=== PATIENT | female | born 1955 | race Caucasian/White ===

== ENCOUNTER 2022-06-28 18:46 | Emergency (ER) | payer OTHER, SELFPAY ==
[2022-06-28 18:58] VITALS: BP 162/78; PULSE 86; RESP 22; TEMP 37.1; O2SAT 100; BMI 29.5
--- NOTE | 2022-06-28 19:16 | CRLHL7_ITS ---
For Patients: As a result of the Century Cures Act, medical imaging exams and procedure reports are released immediately into your electronic medical record. You may view this report before your referring provider. If you have questions, please contact your health care provider. INDICATION: abdominal pain TECHNIQUE: CT abdomen and pelvis acquired with 84 cc Isovue 370 IV contrast. COMPARISON: None. FINDINGS: Lower chest: Scattered areas of mosaic attenuation within the lung bases. Coronary artery calcifications. ABDOMEN: Liver: Normal enhancement. No focal suspicious hepatic lesions. Gallbladder and biliary: Normal gallbladder without radiopaque stone. Normal caliber bile ducts. Spleen: Normal size and enhancement. Pancreas: Normal enhancement without peripancreatic inflammatory changes or ductal dilatation. Adrenal glands: Normal adrenal glands. Kidneys and ureters: Normal enhancement. No radio-opaque calculi. No hydroureteronephrosis. Subcentimeter hypodensities are too small to characterize however statistically represent cysts. GI tract: Tiny hiatal hernia. Normal caliber small and large bowel loops. Appendix is not definitively visualized. Colonic diverticulosis without diverticulitis. Vascular structures: Patent abdominal aorta with atherosclerotic vascular calcifications. Lymph nodes: No lymphadenopathy in the abdomen or pelvis by size criteria. Peritoneum: No free air, free fluid, or focal drainable fluid collection. PELVIS: Genitourinary system: Mild circumferential wall thickening of the urinary bladder. 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 SKELETAL STRUCTURES AND SOFT TISSUES: Heterotopic ossification abutting the ischial tuberosities likely reflecting remote hamstrings injuries. Posterior spinal process fusion. Multilevel lumbar spondylosis. IMPRESSION: 1. No definite acute abdominal or pelvic process in no obstruction. No hydroureteronephrosis. Colonic diverticulosis without diverticulitis. 2. Mild circumferential wall thickening of the urinary bladder. Recommend correlation with urinalysis to assess for underlying cystitis. Please note that all CT scans at this facility use dose modulation, iterative reconstruction, and/or weight-based dosing when appropriate to reduce radiation dose to as low as reasonably achievable. Dictated by Scott Borges MD @ 06/28/2022 9:00:50 PM (Electronically Signed)
--- NOTE | 2022-06-28 19:18 | ED_ITS ---
HPI - Abdominal Pain General Chief Complaint: Abdominal Pain Stated Complaint: Abdominal pain Time Seen by Provider: 06/28/22 18:47 History of Present Illness HPI narrative: This 66-year-old female comes in reporting abdominal pain that began yesterday. She states the pain is constant and is worse in her upper epigastric region but also occurs throughout her whole abdomen. She has had some nausea. She does not report any diarrhea. In fact she has some recent constipation. She has a remote history of coronary artery disease and did have coronary artery bypass grafting more than 20 years ago. She does not report any fevers. She does not indicate any chest pain. Related Data Previous Rx's Medication Instructions Recorded pantoprazole 20 mg tablet,delayed 20 mg PO DAILY #20 tabs 06/28/22 release (Protonix) Allergies Allergy/AdvReac Type Severity Reaction Status Date / Time Penicillins Allergy Verified 06/28/22 18:57 Review of Systems Status of ROS Reports: 10 or more systems reviewed and unremarkable except as noted in History and below Narrative Constitutional: No fevers, no weight gain or loss. Eyes: No discharge. No vision changes. HENT: No congestion, no sore throat, no ear pain. Cardiovascular: No chest pain, no palpitations. Respiratory: No shortness of breath, no wheezes, no cough. Gastrointestinal: Abdominal pain which she rates at 8/10 in severity with associated nausea. Genitourinary: No dysuria, no hematuria. Musculoskeletal: Normal range of motion. Skin: No rashes, no pruritis. Neurological: No dizziness, weakness, sensory change, speech change. Endo/Heme/Allergies: No bruising or bleeding. No polydipsia. Pysch: no suicidality, no anxiety, no insomnia. All other systems reviewed and are negative. [facility] Social History Smoking Status: Current every day smoker What tobacco products do you use: cigarettes Smoking packs per day: 0.75 Smoking cigarettes per day: 15.0 Years smoked: 30 Smoking pack-years: 22.50 Do you use any of these nicotine containing products: None Second hand tobacco smoke exposure: No How often do you have a drink containing alcohol: monthly or less How many standard drinks containing alcohol do you have on a typical day: 1 or 2 How often do you have six or more drinks on one occasion: Never AUDIT-C Alcohol total score: 1 Non-prescribed substance use: denies use service: No Exam Narrative: Exam Narrative: Constitutional: Well-developed, well-nourished, no acute distress. HEENT: Normocephalic, atraumatic. Neck: Normal range of motion. Nontender. Supple. Heart: Regular. No murmurs. Normal rate. Intact distal pulses. Lungs: Clear to auscultation. No chest discomfort. No wheezes, rhonchi, or rales. Abdomen: Normal bowel sounds. Diffuse tenderness throughout the abdomen, upper epigastric area is more tender by her report. No rebound tenderness. Genitalia: Deferred. Back: No midline tenderness. Normal range of motion. Extremities: Normal range of motion. No injury. Skin: Intact. No rash. Warm. No erythema or pallor. Neurologic: No altered sensation. No weakness. Alert and oriented. Psychiatric: No suicidality. No anxiety or depression. No insomnia. Nursing notes and vitals signs are reviewed. Const: Vital Signs, click to edit/add: Vital Signs - 24 hr 06/28/22 18:58 Temperature 98.7 F Pulse Rate [Pulse Oximeter] 86 Respiratory Rate 22 Blood Pressure [Ri ght Upper Arm] 162/78 H Pulse Oximetry 100 Oxygen Delivery Me thod Room Air Course Vital Signs Vital signs: Initial Vital Signs Temperature 98.7 F 06/28/22 18:58 Temperature Source Temporal Artery Scan 06/28/22 18:58 Pulse Rate 86 06/28/22 18:58 Pulse Rhythm Regular 06/28/22 18:58 Respiratory Rate 22 06/28/22 18:58 Blood Pressure 162/78 H 06/28/22 18:58 Blood Pressure Mean 106 H 06/28/22 18:58 Blood Pressure Position Supine 06/28/22 18:58 Pulse Oximetry 100 06/28/22 18:58 Oxygen Delivery Method Room Air 06/28/22 18:58 Vital Signs Temperature 98.7 F 06/28/22 18:58 Pulse Rate 86 06/28/22 18:58 Respiratory Rate 22 06/28/22 18:58 Blood Pressure 162/78 H 06/28/22 18:58 Pulse Oximetry 100 06/28/22 18:58 Oxygen Delivery Method Room Air 06/28/22 18:58 Temperature 98.7 F 06/28/22 18:58 Pulse Rate 86 06/28/22 18:58 Respiratory Rate 22 06/28/22 18:58 Blood Pressure 162/78 H 06/28/22 18:58 Pulse Oximetry 100 06/28/22 18:58 Oxygen Delivery Method Room Air 06/28/22 18:58 MDM - Abdominal Pain MDM Narrative Medical decision making narrative: This patient comes in with upper epigastric abdominal pain. She was concerned that this might be related to her heart however she did not have any chest pain. She does have a remote history of coronary artery disease more than 20 years ago. EKG shows normal findings and her troponin level returns at 0. An IV was established where she did receive nausea and pain medicine. This brought relief to her symptoms. Lab results returned with normal findings as does her CT scan. Urinalysis also shows no sign of infection. Most likely this patient had a gastritis possibly due to a virus. Her nasal swab was negative for COVID, influenza, and RSV. She is okay to be discharged home. She did received prescription for Protonix, Zofran, and some tablets of Toradol. Lab Data Labs: Lab Results 06/28/22 06/28/22 06/28/22 Range/Units 19:26 19:30 19:50 WBC 7.64 (4.50-11.00) K/uL RBC 4.14 (4.00-5.20) m/uL Hgb 13.4 (12.0-16.0) gm/dL Hct 40.1 (33.0-51.0) % MCV 97 (80-100) fL MCH 32 (26-34) pg MCHC 33 (32-36) gm/dL RDW Coeff of Daniel 14.2 (11.5-15.5) % Plt Count 168 (140-440) K/uL Neut % (Auto) 70.3 (42.0-72.0) % Lymph % (Auto) 21.3 (20-44) % [place] % (Auto) 7.2 (0.0-11.0) % Eos % (Auto) 0.8 (0.0-7.0) % Baso % (Auto) 0.3 (0.0-3.0) % Neut # (Auto) 5.37 (1.7-7.0) K/uL Lymph # (Auto) 1.63 (0.90-2.90) K/uL [place] # (Auto) 0.60 (0.00-0.90) K/UL Eos # (Auto) 0.06 (0.00-0.50) K/uL Baso # (Auto) 0.02 (0.00-0.30) K/uL Sodium 130 L (135-149) mmol/L Potassium 3.6 (3.6-5.1) mmol/L Chloride 100 (96-114) mmol/L Carbon Dioxide 21 (20-32) mmol/L BUN 7 (7-30) mg/dL Creatinine 0.7 (0.5-1.5) mg/dL Estimated Creat Clear 47.14 Estimated GFR 95 ml/min Glucose 109 (60-115) mg/dL Calcium 9.0 (8.4-10.6) mg/dL Total Bilirubin 0.6 (0.1-1.5) mg/dL Direct Bilirubin 0.2 (0.0-0.5) mg/dL AST 29 (12-35) U/L ALT 21 (4-35) U/L Alkaline Phosphatase 76 (40-150) U/L Total Protein 7.1 (6.0-8.3) g/dL Albumin 4.2 (3.3-5.0) g/dL Lipase 141 (23-300) U/L Urine Color Yellow (Yellow) Urine Appearance Clear (Clear) Urine pH 7.0 (5.0-8.5) Ur Specific [place] 1.010 (1.000-1.030) Urine Protein Negative (Negative) Urine Glucose (UA) Negative (Negative) Urine Ketones 1+ A (Negative) Urine Blood Trace-intact A (Negative) Urine Nitrite Negative (Negative) Urine Bilirubin Negative (Negative) Urine Urobilinogen 0.2 (0.2-1.0) Ur Leukocyte Esterase Negative (Negative) SARS-CoV-2 (PCR) Negative SARS-CoV-2 (Negative) Influenza Type A (PCR) Negative PCR FLU A (Negative) Influenza Type B (PCR) Negative PCR FLU B (Negative) RSV (PCR) Negative PCR RSV (Negative) POC Troponin I 0.00 L (0.01-0.04) ng/ml Imaging Data CT scan - abdomen: Radiologist's impression: 1. No definite acute abdominal or pelvic process in no obstruction. No hydroureteronephrosis. Colonic diverticulosis without diverticulitis. 2. Mild circumferential wall thickening of the urinary bladder. Recommend correlation with urinalysis to assess for underlying cystitis. ECG Data Attestation: I personally reviewed and interpreted this ECG as follows: Interpretation: Normal sinus rhythm. Rate is 88 beats per minute. There are no ST or T-wave abnormalities. Discharge Plan Discharge Clinical Impression: Gastritis Patient Disposition: Home, Self-Care Condition: Improved Additional Instructions: Take medication as needed and indicated. Follow up with MD or return if worsening. Prescriptions: New pantoprazole [Protonix] 20 mg tablet,delayed release (DR/EC) 20 mg PO DAILY Qty: 20 2RF Follow Up/Referrals: Provider,Not a Local [Primary Care Provider] - Stand Alone Forms: [employer] Info Instructions
--- OUTSIDE RECORDS SUMMARY | 2022-06-28 19:18 | XMS_ITS | Continuity of Care Document ---
Author Name Unknown Organization [facility] Address [address] [address] [place] [address] Phone Care Team Providers Care Caddy/Caddie Supervisor Name Role Phone Nata CANTU, Juventino Unavailable Unavailable Allergies, Adverse Reactions, Alerts Substance Reaction Status Criticality Penicillins Rash Active No Information Medications Medication Instructions Dosage Effective Dates (start - stop) Status Comments oxaprozin 600 mg tablet take 2 tablet by oral route every day 1200 MG - Active lisinopril 20 mg tablet take 1 tablet by oral route every day 20 MG - Active levothyroxine 75 mcg tablet take 1 tablet by oral route every day 75 MCG - Active methotrexate sodium 2.5 mg tablet take 6 Tablet by ORAL route every week 15 MG - Active metoprolol succinate ER 25 mg tablet,extended release 24 hr take 12.5 Milligram by ORAL route every evening 312.5 MG - Active atorvastatin 40 mg tablet take 1 tablet by oral route every day 40 MG - Active Vitamin D3 5,000 unit tablet take 1 by Oral route every day 1 - Active folic acid 400 mcg tablet take 1 tablet by oral route every day 0.4 MG - Active IRON (unknown strength) take 1 by Oral route every day Not Available - Active Calcium 600 + D(3) 600 mg calcium-200 unit capsule take 1 Tablet by Oral route 2 times every day 1 Tablet - Active aspirin 325 mg tablet take 1 tablet by oral route every day 325 MG - Active MiralaxBisacodylMagCit Colon Prep Use as directed Oct-22-2015 - No Longer Active Procedures Procedure Date Colonoscopy Flex; W/remov Les- 16 Level Iv-surg Path Gross/micro 16 Advance Directives Directive Yes / No Effective Date File Name No Information Encounters Encounter Description Practice Location Reason(s) For Visit Diagnoses Date Provider Providers Copied on Encounter [facility], [address] [address], [place], [place], [id number], [place] tel:[phone] [facility] Colon polypDiverticulo sis of large intestine without hemorrhageHemorr hoids, unspecified hemorrhoid typeHemorrhoids, unspecified hemorrhoid typeEncounter for screening for malignant neoplasm of colonUnspecified hemorrhoidsDvrtc los of lg int w/o perforation or abscess w/o bleedingPolyp of colon Jun- 6 Nata Jauregui. [address] [place] [address], [id number] , [place]. tel:[phone] Referring Provider: Sebas Xiao, [address] [place], [address]. tel:[phone] [facility], [address] [address], [place], [place], [id number], [place] tel:[phone] [facility] No Information 5 Edson Ryan. [address] [place] [address], [id number] , . tel:[phone] Referring Provider: Sebas Xiao, [address] [place], [address]. tel:[phone] Family History Family Member Type Diagnosis Age At Onset Daughter Problem (finding) Thyroid disorder Daughter Problem (finding) asthma Mother Problem (finding) Thyroid disorder Mother Problem (finding) gallbladder disease Father Problem (finding) alcoholism Payers Payer name Insurance type Covered green party ID Authoriza tion(s) Blue Cross [place] Blue BL [id number] Social History Type Description Quantity Date Captured Comments Alcohol Use Details Unknown Caffeine Use Details Unknown Tobacco Use Status No Information Smoking Status Never smoker Sex Female Vital Signs Date / Time: Height Weight BMI Pulse Rate Blood Pressure Temperature Respiratory Rate Body Surface Area Head Circumference Head Circ. Percentile Wt./Cb. Percentile BMI percentile Pulse Ox Inhaled Ox 64.00 in 79.820 kg (176.00 lbs) 30.2 0 kg/m eter (2) 75 /min 106/68 mm[Hg] 0.00 F 16 /min 97 % Chief Complaint And Reason For Visit No Information Reason For Referral Reason For Referral No Information Plan Of Treatment Date Type Action Status No Information History Of Present Illness Encounter Date Complaint History Of Prese nt Illness No Information Functional Status Date Functional Assessmen t No Information Instructions Date Instruction Additional Infor mation Hemorrhoids Related to Hemor rhoids, unspecified hemorrhoid type Diverticulosis/Diverticulitis Re lated to Hemorrhoids, unspecified hemorrhoid type Colon Polyps Related to Hemor rhoids, unspecified hemorrhoid type Assessments Type Assessment Date assessment Colon polyp assessment Diverticulosis of large intestin e without hemorrhage assessment Hemorrhoids, unspecified hemorrh oid type Patient Care Teams Name Effective Dates (start - stop) Status Members No Information
--- OUTSIDE RECORDS SUMMARY | 2022-06-28 19:18 | XMS_ITS | Continuity of Care Document ---
Author Name Unknown Organization [facility] Address [address] [address] [place] [address] Phone Care Team Providers Care Enrobing Machine Feeder Name Role Phone Nata CANTU, Juventino Unavailable [...] Diagnoses Date Provider Providers Copied on Encounter [facility], [address] [address], [place], [place], [id number], [place] tel:[phone] [facility] Colon polypDiverticulo sis of large intestine without hemorrhageHemorr hoids, unspecified hemorrhoid typeHemorrhoids, unspecified hemorrhoid typeEncounter for screening for malignant neoplasm of colonUnspecified hemorrhoidsDvrtc los of lg int w/o perforation or abscess w/o bleedingPolyp of colon Jun- 6 Nata Jauregui. [address] [place] [address], [id number] , [place]. tel:[phone] Referring Provider: Sebas Xiao, [address] [place], [address]. tel:[phone] [facility], [address] [address], [place], [place], [id number], [place] tel:[phone] [facility] No Information 5 Edson Ryan. [address] [place] [address], [id number] , . tel:[phone] Referring Provider: Sebas Xiao, [address] [place], [address]. tel:[phone] Family History Family Member Type Diagnosis Age At Onset Daughter Problem (finding) Thyroid disorder Daughter Problem (finding) asthma Mother Problem (finding) Thyroid disorder Mother Problem (finding) gallbladder disease Father Problem (finding) alcoholism Payers Payer name Insurance type Covered green party ID Authoriza tion(s) Blue Cross [place] Blue BL [id number] Social History Type Description Quantity Date Captured [...]
[2022-06-28 19:41] LABS: Appearance Urine Clear (Clear); Bilirubin Urine Negative (Negative); Blood Urine Trace-intact (Negative); Color Urine Yellow (Yellow); Glucose Urine Negative (Negative); Ketones Urine 1+ (Negative); Leukocyte Esterase Urine Negative (Negative); Nitrite Urine Negative (Negative); Protein Urine Negative (Negative); Urobilinogen Urine 0.2 (0.2-1.0)
[2022-06-28] MEDS: ONDANSETRON 2 MG/ML inj 4 MG IVP (20:00)
[2022-06-28] MEDS: HYDROmorphone 0.5 mg/0.5 ml inj IVP (20:00)
[2022-06-28 20:03] LABS: Basophils Absolute Auto 0.02 K/uL (0.00-0.30); Basophils Percent Auto 0.3 % (0.0-3.0); Eosinophils Absolute Auto 0.06 K/uL (0.00-0.50); Eosinophils Percent Auto 0.8 % (0.0-7.0); Hematocrit 40.1 % (33.0-51.0); Hemoglobin* 13.4 gm/dL (12.0-16.0); Immature Granulocytes Abs Auto 0.01 K/uL (0.00-0.30); Immature Granulocytes Pct Auto 0.1 %; Lymphocytes Absolute Auto 1.63 K/uL (0.90-2.90); Lymphocytes Percent Auto 21.3 % (20-44); Mean Corpuscular HGB Conc 33 gm/dL (32-36); Mean Corpuscular Hemoglobin 32 pg (26-34); Mean Corpuscular Volume 97 fL (80-100); Monocytes Percent Auto 7.2 % (0.0-11.0); Neutrophils Absolute Auto 5.37 K/uL (1.7-7.0); Neutrophils Percent Auto 70.3 % (42.0-72.0); Platelet Count* 168 K/uL (140-440); RDW Coefficient of Variation % 14.2 % (11.5-15.5); Red Blood Count 4.14 m/uL (4.00-5.20); White Blood Count* 7.64 K/uL (4.50-11.00)
[2022-06-28 20:16] LABS: Slide Review Reflex No
[2022-06-28 20:19] LABS: Albumin* 4.2 g/dL (3.3-5.0); Chloride* 100 mmol/L (96-114); Sodium* 130 mmol/L (135-149)
[2022-06-28 20:20] LABS: Potassium* 3.6 mmol/L (3.6-5.1)
[2022-06-28 20:22] LABS: Alkaline Phosphatase* 76 U/L (40-150); Aspartate Amino Transferase* 29 U/L (12-35); Bilirubin Direct* 0.2 mg/dL (0.0-0.5); Bilirubin Total* 0.6 mg/dL (0.1-1.5); Blood Urea Nitrogen* 7 mg/dL (7-30); Carbon Dioxide* 21 mmol/L (20-32); Creatinine* 0.7 mg/dL (0.5-1.5); Est. Creatinine Clearance* 47.14; Estimated Glomerular Filt Rate 95 ml/min; Glucose* 109 mg/dL (60-115); Lipase* 141 U/L (23-300); Total Protein* 7.1 g/dL (6.0-8.3)
[2022-06-28 20:23] LABS: Alanine Aminotransferase* 21 U/L (4-35)
[2022-06-28 20:49] LABS: PCR FLU A Negative PCR FLU A (Negative); PCR FLU B Negative PCR FLU B (Negative); PCR RSV Negative PCR RSV (Negative)
[2022-06-28 21:00] VITALS: BP 140/70; PULSE 76; RESP 18; O2SAT 97
[2022-06-28 21:07] LABS: SARS PCR* Negative SARS-CoV-2 (Negative)
[2022-06-29 02:53] LABS: Squamous Epithelial Cell Urine Few (None-Few); WBC Urine 0-2 (0-5)
== END 2022-06-28 21:39 | disposition home or self-care (01) ==
PROVIDERS: Emergency Provider Emergency Medicine Emergency Medical Services
DX: K29.70 Gastritis, unspecified, without bleeding (principal)
CPT/HCPCS: 36415; 74177; 80048; 80076; 81001; 83690; 84484; 85025; 87631; 93005; 96374; 96375; 99284; 99285; J1170; J2405; Q9967

== ENCOUNTER 2022-06-29 20:56 | Inpatient (IN) | payer OTHER, SELFPAY ==
[2022-06-29 21:00] VITALS: BP 167/82; PULSE 77; RESP 18; TEMP 36.6; O2SAT 98; BMI 29.5
[2022-06-29] MEDS: 0.9 % SODIUM CHLORIDE 1000 ml 1,000 ML IV (21:27)
[2022-06-29 21:31] LABS: Basophils Absolute Auto 0.02 K/uL (0.00-0.30); Basophils Percent Auto 0.2 % (0.0-3.0); Eosinophils Absolute Auto 0.06 K/uL (0.00-0.50); Eosinophils Percent Auto 0.6 % (0.0-7.0); Hematocrit 33.7 % (33.0-51.0); Immature Granulocytes Abs Auto 0.01 K/uL (0.00-0.30); Immature Granulocytes Pct Auto 0.1 %; Lymphocytes Percent Auto 18.8 % (20-44); Mean Corpuscular HGB Conc 36 gm/dL (32-36); Mean Corpuscular Hemoglobin 33 pg (26-34); Mean Corpuscular Volume 94 fL (80-100); Monocytes Percent Auto 8.7 % (0.0-11.0); Neutrophils Absolute Auto 6.99 K/uL (1.7-7.0); Neutrophils Percent Auto 71.6 % (42.0-72.0); Platelet Count* 151 K/uL (140-440); RDW Coefficient of Variation % 13.2 % (11.5-15.5); White Blood Count* 9.76 K/uL (4.50-11.00)
[2022-06-29 21:32] LABS: Slide Review Reflex No
--- OUTSIDE RECORDS SUMMARY | 2022-06-29 21:34 | XMS_ITS | Continuity of Care Document ---
Author Name Unknown Organization [facility] Address [address] [address] [place] [address] Phone Care Team Providers Care Corporate Accountant Name Role Phone Nata CANTU, Juventino Unavailable [...] Diagnoses Date Provider Providers Copied on Encounter [facility], [address] [address], [place], [place], [id number], [place] tel:[phone] [facility] Colon polypDiverticulo sis of large intestine without hemorrhageHemorr hoids, unspecified hemorrhoid typeHemorrhoids, unspecified hemorrhoid typeEncounter for screening for malignant neoplasm of colonUnspecified hemorrhoidsDvrtc los of lg int w/o perforation or abscess w/o bleedingPolyp of colon Jun- 6 Nata Jauregui. [address] [place] [address], [id number] , [place]. tel:[phone] Referring Provider: Sebas Xiao, [address] [place], [address]. tel:[phone] [facility], [address] [address], [place], [place], [id number], [place] tel:[phone] [facility] No Information 5 Edson Ryan. [address] [place] [address], [id number] , . tel:[phone] Referring Provider: Sebas Xiao, [address] [place], [address]. tel:[phone] Family History Family Member Type Diagnosis Age At Onset Daughter Problem (finding) Thyroid disorder Daughter Problem (finding) asthma Mother Problem (finding) Thyroid disorder Mother Problem (finding) gallbladder disease Father Problem (finding) alcoholism Payers Payer name Insurance type Covered green party ID Authoriza tion(s) Blue Cross [place] Blue BL [id number] Social History Type Description Quantity Date Captured [...]
[2022-06-29] MEDS: LORazepam 2 MG/ML inj 0.5 MG IVP (21:43)
[2022-06-29] MEDS: diphenhydrAMINE 50 MG/ML inj 12.5 MG IVP (21:43)
[2022-06-29] MEDS: METOCLOPRAMIDE HCL 10 MG in 0.9 % SODIUM CHLORIDE 100 ml 100 ML 306 MG IVPB (21:44)
[2022-06-29] MEDS: GI COCKTAIL (VISC LIDO/ANTACID) 30 ML PO (21:44)
[2022-06-29 21:46] LABS: Chloride* 89 mmol/L (96-114)
[2022-06-29 21:47] LABS: Albumin* 3.7 g/dL (3.3-5.0)
[2022-06-29 21:48] LABS: Creatinine* 0.8 mg/dL (0.5-1.5); Est. Creatinine Clearance* 47.14; Estimated Glomerular Filt Rate 81 ml/min; Potassium* 3.7 mmol/L (3.6-5.1)
[2022-06-29 21:49] LABS: Blood Urea Nitrogen* 9 mg/dL (7-30); Calcium* 8.4 mg/dL (8.4-10.6); Carbon Dioxide* 20 mmol/L (20-32); Glucose* 102 mg/dL (60-115)
[2022-06-29 21:50] LABS: Alanine Aminotransferase* 19 U/L (4-35); Alkaline Phosphatase* 60 U/L (40-150); Aspartate Amino Transferase* 31 U/L (12-35); Bilirubin Direct* 0.2 mg/dL (0.0-0.5); Bilirubin Total* 0.7 mg/dL (0.1-1.5); Lipase* 136 U/L (23-300); Total Protein* 6.2 g/dL (6.0-8.3)
[2022-06-29 21:53] LABS: C Reactive Protein* 0.5 mg/dL (0.5-1.0)
[2022-06-29 21:57] LABS: Sodium* 115 mmol/L (135-149)
[2022-06-29 22:05] VITALS: BP 133/61; RESP 18; O2SAT 99
--- NOTE | 2022-06-29 22:10 | ED_ITS ---
HPI - Nausea/Vomiting/Diarrhea General Chief complaint: Nausea/Vomiting Stated complaint: Vomiting Meds not Working Time Seen by Provider: 06/29/22 21:09 History of Present Illness HPI Narrative: 66-year-old woman returning to the emergency department with complaint primarily of nausea and vomiting. Was seen yesterday with similar along with abdominal pain generalized in the emergency department. Treated with hydromorphone and PPI and IV fluids and antiemetic. Was feeling better discharged home with suspected diagnosis of gastritis. Was to continue with PPI and Zofran. Had not picked up PPI yet but took 's Pepcid and Zofran. Yesterday evening then began to vomit intensely again and continued through the day. She remains constipated saying that she has just making little pellets. She has not had any hematochezia or hematemesis. Does have some burning discomfort in her epigastrium but primarily complaint is nausea. She does not typically have heartburn she says. Anything she tries to ingest seems to come back up. Denies a history of achalasia type symptoms. Abdominal CT scan done yesterday suggested some bladder wall thickening with concern of possible cystitis the urinalysis was without evidence of infection. Diverticulosis without diverticulitis. Related Data Home Medications Medication Instructions Recorded Confirmed aspirin 325 mg tablet 325 mg PO DAILY 06/29/22 06/29/22 atorvastatin 40 mg tablet 40 mg PO DAILY 06/29/22 06/29/22 folic acid 1 mg tablet 1 mg PO DAILY 06/29/22 06/29/22 hydroxychloroquine 200 mg tablet 200 mg PO DAILY 06/29/22 06/29/22 ibuprofen 200 mg capsule 400 mg PO DAILY PRN 06/29/22 06/29/22 levothyroxine 100 mcg tablet 100 mcg PO DAILY 06/29/22 06/29/22 lisinopril 20 mg tablet 20 mg PO DAILY 06/29/22 06/29/22 methotrexate sodium 2.5 mg tablet 20 mg PO @06/29/22 06/30/22 metoprolol succinate 25 mg 12.5 mg PO DAILY 06/29/22 06/29/22 tablet,extended release 24 hr pregabalin 75 mg capsule 75 mg PO BID 06/29/22 06/30/22 calcium carbonate 600 mg calcium 1,200 mg PO DAILY 06/30/22 06/30/22 (1,500 mg) tablet (Calcium) cholecalciferol (vitamin D3) .ROUTE 06/30/22 Previous Rx's Medication Instructions Recorded pantoprazole 20 mg tablet,delayed 20 mg PO DAILY #20 tabs 06/28/22 release (Protonix) Allergies Allergy/AdvReac Type Severity Reaction Status Date / Time Penicillins Allergy Verified 06/28/22 18:57 Review of Systems Status of ROS: Reports: 6 or more systems reviewed and unremarkable except as noted in History and below [facility] Medical History (Updated 07/01/22 @ 09:35 by Rosio Dawkins MD) Chronic low back pain ?M54.50 - Low back pain, unspecified (ICD-10) ?G89.29 - Other chronic pain (ICD-10) Coronary artery disease ?I25.10 - Atherosclerotic heart disease of [place] coronary artery without angina pectoris (ICD-10) Hyperlipidemia ?E78.5 - Hyperlipidemia, unspecified (ICD-10) Hypertension ?I10 - Essential (primary) hypertension (ICD-10) Hypothyroidism ?E03.9 - Hypothyroidism, unspecified (ICD-10) Rheumatoid arthritis ?M06.9 - Rheumatoid arthritis, unspecified (ICD-10) Surgical History History of coronary artery bypass graft ?Z95.1 - Presence of aortocoronary bypass graft (ICD-10) Family History (Updated 06/29/22 @ 23:41 by Gaetano Hodge MD) Mother Coronary artery disease Stroke High cholesterol High blood pressure Brother Coronary artery disease High cholesterol High blood pressure Father Alcohol dependence Social History (Updated 06/29/22 @ 23:42 by Gaetano Hodge MD) Narrative: She lives in [facility] with her . They have 1 adult daughter. Her , Royer, is healthcare power of defense attorney. Code status is full. She smokes 3/4 pack of cigarettes per day. She rarely drinks alcohol Highest level of school completed/degree received: some college, no degree Smoking Status: Current every day smoker What tobacco products do you use: cigarettes Smoking packs per day: 0.75 Smoking cigarettes per day: 15.0 Years smoked: 30 Smoking pack-years: 22.50 Do you use any of these nicotine containing products: None Second hand tobacco smoke exposure: No How often do you have a drink containing alcohol: monthly or less How many standard drinks containing alcohol do you have on a typical day: 1 or 2 How often do you have six or more drinks on one occasion: Never AUDIT-C Alcohol total score: 1 Non-prescribed substance use: denies use Caffeine: Yes (Coffee QD) service: No Exam Narrative: Exam Narrative: Pleasant. Seems generally uncomfortable. Breathing easily. Brow furrowed in apparent discomfort. Has emesis basin they brought with that it has just emptied. Abdomen is soft with present but diminished bowel sounds. She is mildly tender to palpation in the epigastrium. Heart with regular rate and rhythm. Lungs appear to be clear. Cranial nerves 2-12 intact. She is well- perfused peripherally. Trace lower extremity nonpitting dependent edema. Const: Vital Signs, click to edit/add: Vital Signs - 24 hr 06/29/22 21:00 06/29/22 22:05 06/29/22 22:39 Temperature 98 F Pulse Rate [Pulse Oximeter] 77 79 Respiratory Rate 18 18 20 Blood Pressure [Ri ght Upper Arm] 167/82 H 133/61 145/67 H Pulse Oximetry 98 99 95 Oxygen Delivery Me thod Room Air Room Air Room Air Documenting provider has reviewed patient's vital signs: yes Course Course Hospital Course: PCP - Please check BMP at visit on July 09. Also, consider further w/u or urology referral for circumferencial bladder wall thickening seen on CT with ongoing suprapubic tenderness and microscopic hematuria. This is a 66-year-old female who had sudden onset of epigastric and suprapubic abdominal pain followed by frequent emesis. These symptoms lasted for about 4 days. She had been seen in the ER initially and then again the next day at which time she was admitted for hyponatremia. Her sodium had dropped from 130- 115 overnight. This was likely secondary to dehydration. It corrected with hydration and her sodium is 134 today on discharge. Epigastric abdominal pain has resolved. Suprapubic abdominal pain has improved, but is not completely gone. Circumferential bladder wall thickening was seen on CT and she did have microscopic hematuria on the urinalysis on the 1st presentation to the emergency department. Emesis has resolved and she is tolerating a general diet. And I spoke about tobacco cessation today. She stated that she was not completely ready yet but would talk with her about it, note that her is a nonsmoker, and would talk with her primary care provider about it. She is disch arged home today in improved and stable condition. Vital Signs Vital signs: Initial Vital Signs Temperature 98 F 06/29/22 21:00 Temperature Source Temporal Artery Scan 06/29/22 21:00 Pulse Rate 77 06/29/22 21:00 Respiratory Rate 18 06/29/22 21:00 Blood Pressure 167/82 H 06/29/22 21:00 Blood Pressure Mean 110 H 06/29/22 21:00 Pulse Oximetry 98 06/29/22 21:00 Oxygen Delivery Method Room Air 06/29/22 21:00 Vital Signs Temperature 98 F 06/29/22 21:00 Pulse Rate 77 06/29/22 21:00 Respiratory Rate 18 06/29/22 21:00 Blood Pressure 167/82 H 06/29/22 21:00 Pulse Oximetry 98 06/29/22 21:00 Oxygen Delivery Method Room Air 06/29/22 21:00 Temperature 97.7 F 07/01/22 07:00 Pulse Rate 74 07/01/22 07:00 Respiratory Rate 18 07/01/22 07:00 Blood Pressure 139/76 07/01/22 07:00 Pulse Oximetry 96 07/01/22 07:00 Oxygen Delivery Method Room Air 07/01/22 07:00 MDM - Nausea/Vomiting/Diarrhea MDM Narrative Medical decision making narrative: Still seems to be gastritis complicated with constipation. Have placed IV fluids. Ordered for Reglan. Also half a mg of lorazepam and GI cocktail. Diphenhydramine ahead of Reglan. Labs reviewed most remarkable is a sodium of 115. Yesterday was 130. Overall improved. Again be reasonable yet to do an abdominal x-ray to evaluate for potential evidence of obstructive process though without marked pain and admittedly has passed some stool. Perhaps more of an ileus picture? Two-view abdominal x-ray reviewed by me shows evidence of postoperative change. No obstructive pattern. Diffuse stool. No subdiaphragmatic air appreciated. Increasing left hip pain in the setting of rheumatoid arthritis. She would like something for pain. Has not been able to take her usual medications due to vomiting. Ordering ketorolac and morphine IV. She admits the Dilaudid yesterday was pretty heavy. Will be admitted for fluid resuscitation in restore serum sodium. Likely from GI losses. Have discussed with hospitalist. Medical Records Attestation: I reviewed the patient's medical records. Lab Data Attestation: I reviewed the patient's lab results. Labs: Lab Results 06/29/22 06/29/22 Range/Units 00:02 21:24 WBC 9.76 (4.50-11.00) K/uL RBC 3.60 L (4.00-5.20) m/uL Hgb 12.0 (12.0-16.0) gm/dL Hct 33.7 (33.0-51.0) % MCV 94 (80-100) fL MCH 33 (26-34) pg MCHC 36 (32-36) gm/dL RDW Coeff of Daniel 13.2 (11.5-15.5) % Plt Count 151 (140-440) K/uL Neut % (Auto) 71.6 (42.0-72.0) % Lymph % (Auto) 18.8 L (20-44) % [place] % (Auto) 8.7 (0.0-11.0) % Eos % (Auto) 0.6 (0.0-7.0) % Baso % (Auto) 0.2 (0.0-3.0) % Neut # (Auto) 6.99 (1.7-7.0) K/uL Lymph # (Auto) 1.80 (0.90-2.90) K/uL [place] # (Auto) 0.80 (0.00-0.90) K/UL Eos # (Auto) 0.06 (0.00-0.50) K/uL Baso # (Auto) 0.02 (0.00-0.30) K/uL Sodium Cancelled 115 L* Potassium 3.7 (3.6-5.1) mmol/L Chloride 89 L (96-114) mmol/L Carbon Dioxide 20 (20-32) mmol/L BUN 9 (7-30) mg/dL Creatinine 0.8 (0.5-1.5) mg/dL Estimated Creat Clear 47.14 Estimated GFR 81 ml/min Glucose 102 (60-115) mg/dL Calcium 8.4 (8.4-10.6) mg/dL Total Bilirubin 0.7 (0.1-1.5) mg/dL Direct Bilirubin 0.2 (0.0-0.5) mg/dL AST 31 (12-35) U/L ALT 19 (4-35) U/L Alkaline Phosphatase 60 (40-150) U/L C-Reactive Protein 0.5 (0.5-1.0) mg/dL Total Protein 6.2 (6.0-8.3) g/dL Albumin 3.7 (3.3-5.0) g/dL Lipase 136 (23-300) U/L Discharge Plan Discharge Clinical Impression: Gastritis, Hyponatremia, Constipation, Dehydration Patient Disposition: Admitted As Inpatient Condition: Improved Activity Level: No Restrictions Discharge Diet: Low Fat/Low Cholesterol
--- NOTE | 2022-06-29 22:11 | CRLHL7_ITS ---
For Patients: As a result of the Century Cures Act, medical imaging exams and procedure reports are released immediately into your electronic medical record. You may view this report before your referring provider. If you have questions, please contact your health care provider. Indication: Vomiting and constipation. Technique: Abdomen 4 view. Comparison: None. Findings/Impression: Bowel: Bowel pattern is normal. Mild colonic stool burden. Soft tissues: No sign of free air. No sign of soft tissue mass. No suspicious calcifications. Bones: Unremarkable for age. Dictated by Wolf Croft MD @ 06/29/2022 11:24:30 PM (Electronically Signed)
[2022-06-29 22:39] VITALS: BP 145/67; PULSE 79; RESP 20; O2SAT 95
--- NOTE | 2022-06-29 22:42 | PC.NURSE ---
report given to david Briggs RN
--- NOTE | 2022-06-29 22:50 | PC.NURSE ---
patient taken to room 257 on m/s with , all belongings sent with patient, patient reports she is having less nausea after medications.
[2022-06-29 23:01] VITALS: BP 132/56; PULSE 75; RESP 18; TEMP 36.6; O2SAT 96
--- NOTE | 2022-06-29 23:34 | P.IMHP_ITS ---
Hospitalist- H&P: HPI History of Present Illness Date Seen: 06/29/22 Chief complaint: Vomiting Meds not Working Narrative: Ban Monsalve is a 66 year old female with coronary artery disease, rheumatoid arthritis, hypertension and hypothyroidism admitted through the emergency department with ongoing abdominal pain and onset of intractable vomiting. Patient reports couple day history of epigastric abdominal pain and anorexia. She was seen in the emergency room yesterday for this. She was diagnosed at that time with gastritis and discharged with a PPI and antiemetic. Today she reported ongoing epigastric pain and anorexia. Late this afternoon she ate some green beans and about hour later had onset of severe and persisting vomiting. The abdominal pain is located in the epigastric region. She has not had any blood in her emesis. She reports she has had small formed stools yesterday and today that were otherwise normal. She feels a little bit constipated. She has not had previous problems with abdominal pain or vomiting like this. She has not any recent travel history. Her had similar symptoms 2-3 weeks ago. He was diagnosed with COVID. His symptoms have resolved. She has had no previous abdominal surgery. She has a history of coronary artery bypass grafting x4 in 1996. No chest pain recently. No unusual dyspnea. She denies any respiratory illness symptoms including cough, sore throat, fever. Review of Systems Narrative: Patient reports generally doing well up until the last 2 or 3 days when these symptoms of illness began as outlined above. She has chronic back pain which is still bothering her. She does take ibuprofen for this occasionally, typically 200-400 mg daily but not every day. Review of systems is otherwise negative. [facility] Medical History Chronic low back pain ?M54.50 - Low back pain, unspecified (ICD-10) ?G89.29 - Other chronic pain (ICD-10) Coronary artery disease ?I25.10 - Atherosclerotic heart disease of [place] coronary artery without angina pectoris (ICD-10) Hyperlipidemia ?E78.5 - Hyperlipidemia, unspecified (ICD-10) Hypertension ?I10 - Essential (primary) hypertension (ICD-10) Hypothyroidism ?E03.9 - Hypothyroidism, unspecified (ICD-10) Rheumatoid arthritis ?M06.9 - Rheumatoid arthritis, unspecified (ICD-10) Surgical History History of coronary artery bypass graft ?Z95.1 - Presence of aortocoronary bypass graft (ICD-10) Family History (Updated 06/29/22 @ 23:41 by Gaetano Hodge MD) Mother Coronary artery disease Stroke High cholesterol High blood pressure Brother Coronary artery disease High cholesterol High blood pressure Father Alcohol dependence Social History (Updated 06/29/22 @ 23:42 by Gaetano Hodge MD) Narrative: She lives in [facility] with her . They have 1 adult daughter. Her , Royer, is healthcare power of patent attorney. Code status is full. She smokes 3/4 pack of cigarettes per day. She rarely drinks alcohol Smoking Status: Current every day smoker What tobacco products do you use: cigarettes Smoking packs per day: 0.75 Smoking cigarettes per day: 15.0 Years smoked: 30 Smoking pack-years: 22.50 Do you use any of these nicotine containing products: None Second hand tobacco smoke exposure: No How often do you have a drink containing alcohol: monthly or less How many standard drinks containing alcohol do you have on a typical day: 1 or 2 How often do you have six or more drinks on one occasion: Never AUDIT-C Alcohol total score: 1 Non-prescribed substance use: denies use service: No Meds Home Medications and Allergies Home Medications Medication Instructions Recorded Confirmed Type atorvastatin 40 mg tablet 40 mg PO DAILY 06/29/22 06/29/22 History folic acid 1 mg tablet 1 mg PO DAILY 06/29/22 06/29/22 History hydroxychloroquine 200 mg tablet 200 mg PO DAILY 06/29/22 06/29/22 History levothyroxine 100 mcg tablet 100 mcg PO DAILY 06/29/22 06/29/22 History lisinopril 20 mg tablet 20 mg PO DAILY 06/29/22 06/29/22 History methotrexate sodium 2.5 mg tablet 20 mg PO .weekly 06/29/22 06/29/22 History metoprolol succinate 25 mg 12.5 mg PO Q12H 06/29/22 06/29/22 History tablet,extended release 24 hr pregabalin 75 mg capsule 75 mg PO BID 06/29/22 06/29/22 History Home Medication Comments: She has not been able to take several of her medications in the last 2 days. Also takes aspirin, p.r.n. ibuprofen, vitamin-D and calcium. Takes methotrexate on Tuesdays Allergies Allergy/AdvReac Type Severity Reaction Status Date / Time Penicillins Allergy Verified 06/28/22 18:57 Exam Narrative: Exam Narrative: She is alert and appears mildly uncomfortable. She is indicating she is having some pain from her back going into her left hip buttock area. Eyes normal. Sclerae nonicteric. Extraocular movements are full. Oropharynx with small airway. Edentulous. Neck is supple without mass or adenopathy. Salivary glands bilaterally of somewhat prominent. No other adenopathy is noted. Respirations are clear to auscultation. Cardiovascular: S1, S2, regular rate and rhythm. No murmur gallop or rub. Abdomen: Bowel sounds active. Abdomen is soft with minimal epigastric tenderness. No mass. No peritonitis. External genitalia normal. Extremities with intact pulses. No significant edema. No rash or skin changes. Const: Vital Signs, click to edit/add: Vital Signs - 24 hr 06/29/22 21:00 06/29/22 22:05 06/29/22 22:39 Temperature 98 F Pulse Rate [Pulse Oximeter] 77 79 Respiratory Rate 18 18 20 Blood Pressure [Ri ght Upper Arm] 167/82 H 133/61 145/67 H Pulse Oximetry 98 99 95 Oxygen Delivery Me thod Room Air Room Air Room Air Documenting provider has reviewed patient's vital signs: yes Hospitalist - H&P: Result Labs Labs: Short CBC 06/29/22 Range/Units 21:24 WBC 9.76 (4.50-11.00) K/uL Hgb 12.0 (12.0-16.0) gm/dL Hct 33.7 (33.0-51.0) % Plt Count 151 (140-440) K/uL BMP 06/29/22 21:24 Sodium 115 L* Potassium 3.7 Chloride 89 L Carbon Dioxide 20 BUN 9 Creatinine 0.8 Glucose 102 Calcium 8.4 Liver Function 06/29/22 Range/Units 21:24 Total Bilirubin 0.7 (0.1-1.5) mg/dL Direct Bilirubin 0.2 (0.0-0.5) mg/dL AST 31 (12-35) U/L ALT 19 (4-35) U/L Alkaline Phosphatase 60 (40-150) U/L Albumin 3.7 (3.3-5.0) g/dL ECG Attestation: I personally reviewed and interpreted this ECG as follows: (No prolonged QT. Nonspecific ST-T changes) Imaging CT scan - abdomen: Radiologist's impression: Lower chest: Scattered areas of mosaic attenuation within the lung bases. Coronary artery calcifications. ABDOMEN: Liver: Normal enhancement. No focal suspicious hepatic lesions. Gallbladder and biliary: Normal gallbladder without radiopaque stone. Normal caliber bile ducts. Spleen: Normal size and enhancement. Pancreas: Normal enhancement without peripancreatic inflammatory changes or ductal dilatation. Adrenal glands: Normal adrenal glands. Kidneys and ureters: Normal enhancement. No radio-opaque calculi. No hydroureteronephrosis. Subcentimeter hypodensities are too small to characterize however statistically represent cysts. GI tract: Tiny hiatal hernia. Normal caliber small and large bowel loops. Appendix is not definitively visualized. Colonic diverticulosis without diverticulitis. Vascular structures: Patent abdominal aorta with atherosclerotic vascular calcifications. Lymph nodes: No lymphadenopathy in the abdomen or pelvis by size criteria. Peritoneum: No free air, free fluid, or focal drainable fluid collection. PELVIS: Genitourinary system: Mild circumferential wall thickening of the urinary bladder. 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 SKELETAL STRUCTURES AND SOFT TISSUES: Heterotopic ossification abutting the ischial tuberosities likely reflecting remote hamstrings injuries. Posterior spinal process fusion. Multilevel lumbar spondylosis. IMPRESSION: 1. No definite acute abdominal or pelvic process in no obstruction. No hydroureteronephrosis. Colonic diverticulosis without diverticulitis. 2. Mild circumferential wall thickening of the urinary bladder. Recommend correlation with urinalysis to assess for underlying cystitis. Please note that all CT scans at this facility use dose modulation, iterative reconstruction, and/or weight-based dosing when appropriate to reduce radiation dose to as low as reasonably achievable. Assessment and Plan Assessment and plan (1) Hyponatremia: Problem comment: Acute hyponatremia likely due to intractable vomiting. In 1 day her sodium went from 130-115. Will treat this as an acute volume loss problem initially and mo nitor sodium closely. Anticipate this will resolve with isotonic fluid. Will likely recur if she is unable to eat so her vomiting and anorexia and abdominal pain will need to be resolved. Status: Acute (2) Vomiting: Problem comment: Uncertain cause. Likely related to epigastric abdominal pain. Status: Acute (3) Abdominal pain: Problem comment: Cause for this is uncertain. She does not have an acute abdomen at this time. CT yesterday showed reassuring findings. Labs are also reassuring. Will obtain an ultrasound of the right upper quadrant in the morning. Status: Acute Plan Patient be admitted to the hospital for management of hyponatremia abdominal pain and vomiting. Tonight will address the hyponatremia with symptomatic measures for abdominal pain and vomiting. Further investigation of these is warranted. Will obtain ultrasound of the right upper quadrant in the morning. Will order her medications for the morning though unclear if she is going to be able to tolerate any p.o. medications. Will hold antihypertensives and NSAIDs and aspirin and methotrexate for now. Total time spent today is 80 minutes, 50 minutes in coordination of care and discussing with patient and and other providers ongoing evaluation management of abdominal pain, vomiting and hyponatremia.
[2022-06-29] MEDS: SODIUM CHLORIDE 0.9 % (FLUSH) 10 ML SYRINGE 5 ML IVF (23:54)
[2022-06-29] MEDS: 0.9 % SODIUM CHLORIDE 1000 ml 1,000 ML 125 ML IV (23:54)
[2022-06-30] MEDS: LORazepam 2 MG/ML inj 0.5 MG IVP ×2 (00:04→06:34)
[2022-06-30 03:00] VITALS: BP 139/72; PULSE 84; RESP 18; TEMP 36.5; O2SAT 96
[2022-06-30] MEDS: ONDANSETRON 2 MG/ML inj 4 MG IVP (03:59)
[2022-06-30 06:06] LABS: Chloride* 99 mmol/L (96-114)
[2022-06-30 06:07] LABS: Potassium* 3.8 mmol/L (3.6-5.1); Sodium* 125 mmol/L (135-149)
[2022-06-30 06:09] LABS: Carbon Dioxide* 22 mmol/L (20-32); Creatinine* 0.7 mg/dL (0.5-1.5); Est. Creatinine Clearance* 47.14; Estimated Glomerular Filt Rate 95 ml/min
[2022-06-30 06:10] LABS: Blood Urea Nitrogen* 7 mg/dL (7-30); Calcium* 7.8 mg/dL (8.4-10.6); Glucose* 94 mg/dL (60-115); Magnesium* 1.9 mg/dL (1.5-2.6)
--- NOTE | 2022-06-30 06:15 | PC.NURSE ---
End of shift note: Pt admit from ED at 2245 in the evening for recent N/V and hyponatremia. Pt alert and oriented and able to walk in room w/ SBA and no device, pt states generalized weakness from the recent nausea and vomiting. Voided multiple times in the evening, at times missing hat in toilet, readjusted. Pt states she voids frequently at home. Pt did receive bolus in ED and now receiving NS at 125ml/hr, IV to R AC and L forearm. Pt stated 8/10 pain to L hip/leg, stating arthritis and discomfort from ED and current bed, heating pad placed and pillow for support, PRN Ativan admin. Discussed PRN pain meds, r/t to pt?s recent vomiting provider stated pain med may cause pt to be more nauseous, reluctant to take at this time. Pt c/o being nausea in shaky in early AM, vitals WDL, afebrile, blood sugar checked as pt hasn?t eaten for a while d/t N/V, BG 106. Pt declined being able to take PO meds at this time, PRN IV Zofran admin. Since pt up freq to void since admission, little sleep this shift. Pt on clear liquid diet but stated she only wants water at this time. Pt has call light within reach, encouraged to use and bed alarm on for safety promotion.??
[2022-06-30 06:22] LABS: Troponin I* < 0.01 ng/mL (0.01-0.04)
[2022-06-30] MEDS: SODIUM CHLORIDE 0.9 % (FLUSH) 10 ML SYRINGE 5 ML IVF ×3 (06:35→21:03)
--- NOTE | 2022-06-30 06:43 | PC.NURSE ---
Morning labs came back with a sodium of 125, Damian called, order received to stop the IV fluids, normal saline stopped.
--- NOTE | 2022-06-30 06:46 | PM.IMPN1 ---
Subjective Date Seen: 06/30/22 Interval history: Cross Cover Note eHospitalist was contacted by nursing staff with concern of significant change in sodium level. Sodium at 2123 yesterday was 115 on was not checked until 5:30 AM and was noted to be 125. IV fluids stopped and BMP ordered for every 4 hours. If sodium level continues to trend up, given significant change within 24 hours recommend beginning D5W. Rounding provider to reevaluate. Follow-up BMP ordered for 10 AM and 2 PM. [facility] you [facility]. This service is available for further assistance as requested by your care team by calling [phone]. Exam Const: Vital Signs, click to edit/add: Vital Signs - 24 hr 06/29/22 21:00 06/29/22 22:05 06/29/22 22:39 Temperature 98 F Pulse Rate [Pulse Oximeter] 77 79 Pulse Rate [Right Pulse Oximeter] Respiratory Rate 18 18 20 Blood Pressure [Le ft Arm] Blood Pressure [Ri ght Upper Arm] 167/82 H 133/61 145/67 H Pulse Oximetry 98 99 95 Oxygen Delivery Me thod Room Air Room Air Room Air 06/29/22 23:01 06/29/22 23:01 06/30/22 03:00 Temperature 97.9 F 97.7 F Pulse Rate [Pulse Oximeter] Pulse Rate [Right Pulse Oximeter] 75 84 Respiratory Rate 18 18 Blood Pressure [Le ft Arm] 132/56 L 139/72 Blood Pressure [Ri ght Upper Arm] Pulse Oximetry 96 96 96 Oxygen Delivery Me thod Room Air Room Air Room Air Labs Labs: Laboratory Results - last 24 hr 06/29/22 06/29/22 06/30/22 00:02 21:24 05:35 WBC 9.76 RBC 3.60 L Hgb 12.0 Hct 33.7 MCV 94 MCH 33 MCHC 36 RDW Coeff of Daniel 13.2 Plt Count 151 Neut % (Auto) 71.6 Lymph % (Auto) 18.8 L [place] % (Auto) 8.7 Eos % (Auto) 0.6 Baso % (Auto) 0.2 Neut # (Auto) 6.99 Lymph # (Auto) 1.80 [place] # (Auto) 0.80 Eos # (Auto) 0.06 Baso # (Auto) 0.02 Sodium 117 L* 115 L* 125 L Potassium 3.7 3.8 Chloride 89 L 99 Carbon Dioxide 20 22 BUN 9 7 Creatinine 0.8 0.7 Estimated Creat Clear 47.14 47.14 Estimated GFR 81 95 Glucose 102 94 Calcium 8.4 7.8 L Magnesium 1.9 Total Bilirubin 0.7 Direct Bilirubin 0.2 AST 31 ALT 19 Alkaline Phosphatase 60 Troponin I < 0.01 L C-Reactive Protein 0.5 Total Protein 6.2 Albumin 3.7 Lipase 136
[2022-06-30 06:51] LABS: Thyroid Stimulating Hormone* 0.541 uIU/mL (0.270-4.20)
[2022-06-30 08:00] VITALS: BP 153/68; PULSE 87; RESP 18; TEMP 37.1; O2SAT 95
--- NOTE | 2022-06-30 08:00 | CRLHL7_ITS ---
For Patients: As a result of the Century Cures Act, medical imaging exams and procedure reports are released immediately into your electronic medical record. You may view this report before your referring provider. If you have questions, please contact your health care provider. INDICATION: Epigastric abdominal pain. COMPARISON: Correlation is made with an abdominal pelvic CT June 28, 2022 TECHNIQUE: Real time dodd scale imaging and color Doppler analysis was performed of the right upper quadrant. FINDINGS: The patient`s liver is of normal size but demonstrates minimally increased echogenicity potentially reflecting fatty infiltration. There is a normal appearance of the hepatic IVC and proximal abdominal aorta. There is no evidence of ascites. The gallbladder is of normal size and there is no evidence of intraluminal stones or sludge. The gallbladder wall measures 1.0 mm in thickness. The common bile duct is of normal size and measures 5.0 mm in diameter at the level of the lyla hepatis. The pancreas appears normal where seen but is incompletely visualized on this study. It was normal on the most recent CT. There is no evidence of a stone or hydronephrosis within the right kidney. The right kidney measures 11.1 x 3.7 x 5.3 cm. IMPRESSION: Questionable minor hepatic fatty infiltration. Otherwise normal right upper quadrant ultrasound. Dictated by Mark Busby MD @ 06/30/2022 9:08:01 AM (Electronically Signed)
[2022-06-30 10:48] LABS: Chloride* 102 mmol/L (96-114); Potassium* 4.1 mmol/L (3.6-5.1); Sodium* 128 mmol/L (135-149)
[2022-06-30 10:51] LABS: Blood Urea Nitrogen* 6 mg/dL (7-30); Carbon Dioxide* 23 mmol/L (20-32); Creatinine* 0.7 mg/dL (0.5-1.5); Est. Creatinine Clearance* 47.14; Estimated Glomerular Filt Rate 95 ml/min; Glucose* 112 mg/dL (60-115)
[2022-06-30] MEDS: METOPROLOL SUCCINATE (XL) 25 MG TAB 12.5 MG PO (10:58)
[2022-06-30] MEDS: FOLIC ACID 1 MG TABLET PO (10:58)
[2022-06-30] MEDS: HYDROXYCHLOROQUINE 200 MG TABLET PO (10:59)
[2022-06-30] MEDS: PREGABALIN 75 MG CAPSULE PO (10:59)
[2022-06-30] MEDS: LEVOTHYROXINE 100 MCG TABLET PO (11:31)
[2022-06-30] MEDS: OMEPRAZOLE 20 MG CAPSULE DR 40 MG PO (11:31)
[2022-06-30 12:00] VITALS: BP 150/67; PULSE 76; RESP 18; TEMP 37.1; O2SAT 95
[2022-06-30 13:59] LABS: Sodium* 117 mmol/L (135-149)
--- NOTE | 2022-06-30 14:16 | PM.IMPN1 ---
Progress Note: A&P Assessment and plan (1) Vomiting: Problem details: Uncertain cause. Likely related to epigastric abdominal pain. Suspect viral gastroenteritis, but unclear. Vomiting has abated has has nausea. Advanced diet as tolerated. Status: Acute (2) Abdominal pain: Problem details: Cause for this is uncertain. Suspect viral gastroenteritis. She does not have an acute abdomen at this time. CT yesterday showed reassuring findings. Ultrasound today reassuring. Labs are also reassuring. Status: Acute (3) Gastritis: Status: Acute (4) Hyponatremia: Problem details: Acute hyponatremia likely due to intractable vomiting. In 1 day her sodium went from 130-115. Will treat this as an acute volume loss problem initially and monitor sodium closely. This is correcting quickly and IV fluids were discontinued this morning. Rate of correction has slowed down. I do not think we need to give D5W at this time since her sodium drop was acute and so correction should be able to be more rapid. Status: Acute (5) Dehydration: Status: Resolved (6) Constipation: Problem details: Start bowel meds. Status: Acute (7) Nicotine dependence: Problem details: Start Nicotrol inhaler. Status: Acute Plan I saw the patient initially this morning and then later went back and saw her with her to answer questions and give results of ultrasound. Continue monitoring sodium levels, advance diet as tolerated, and anticipate discharge tomorrow. Time Spent With Patient Total time spent: Today I spent 35 minutes rounding on the patient. Greater than 50% included discussing care with the team, reviewing data, updating and managing the care plan. Subjective Time Seen by Provider: 08:06 Date Seen: 06/30/22 Exam Narrative: Exam Narrative: General: No acute distress. Awake, alert, oriented x3. No pallor. No jaundice. Oropharynx: Clear. Mucous membranes moist. Cardiovascular: Regular rate and rhythm. No murmurs, gallops, or rubs. Respiratory: Clear to auscultation bilaterally. No wheezes or crackles. Abdomen: Bowel sounds present. Soft, nondistended, mildly tender in epigastrium and left upper quadrant as well as bilateral suprapubic areas. Extremities: No pedal edema. Const: Vital Signs, click to edit/add: Vital Signs - 24 hr 06/29/22 21:00 06/29/22 22:05 06/29/22 22:39 Temperature 98 F Pulse Rate [Pulse Oximeter] 77 79 Pulse Rate [Right Pulse Oximeter] Respiratory Rate 18 18 20 Blood Pressure [Le ft Arm] Blood Pressure [Ri ght Upper Arm] 167/82 H 133/61 145/67 H Pulse Oximetry 98 99 95 Oxygen Delivery Me thod Room Air Room Air Room Air 06/29/22 23:01 06/29/22 23:01 06/30/22 03:00 Temperature 97.9 F 97.7 F Pulse Rate [Pulse Oximeter] Pulse Rate [Right Pulse Oximeter] 75 84 Respiratory Rate 18 18 Blood Pressure [Le ft Arm] 132/56 L 139/72 Blood Pressure [Ri ght Upper Arm] Pulse Oximetry 96 96 96 Oxygen Delivery Me thod Room Air Room Air Room Air 06/30/22 08:00 06/30/22 08:00 Temperature 98.8 F Pulse Rate [Pulse Oximeter] Pulse Rate [Right Pulse Oximeter] 87 87 Respiratory Rate 18 18 Blood Pressure [Le ft Arm] 153/68 H Blood Pressure [Ri ght Upper Arm] Pulse Oximetry 95 Oxygen Delivery Me thod Room Air Documenting provider has reviewed patient's vital signs: yes Labs Labs: Laboratory Results - last 24 hr 06/29/22 06/29/22 06/30/22 00:02 21:24 00:02 WBC 9.76 RBC 3.60 L Hgb 12.0 Hct 33.7 MCV 94 MCH 33 MCHC 36 RDW Coeff of Daniel 13.2 Plt Count 151 Neut % (Auto) 71.6 Lymph % (Auto) 18.8 L [place] % (Auto) 8.7 Eos % (Auto) 0.6 Baso % (Auto) 0.2 Neut # (Auto) 6.99 Lymph # (Auto) 1.80 [place] # (Auto) 0.80 Eos # (Auto) 0.06 Baso # (Auto) 0.02 Sodium Cancelled 115 L* 117 L* Potassium 3.7 Chloride 89 L Carbon Dioxide 20 BUN 9 Creatinine 0.8 Estimated Creat Clear 47.14 Estimated GFR 81 Glucose 102 Calcium 8.4 Magnesium Total Bilirubin 0.7 Direct Bilirubin 0.2 AST 31 ALT 19 Alkaline Phosphatase 60 Troponin I C-Reactive Protein 0.5 Total Protein 6.2 Albumin 3.7 Lipase 136 TSH 06/30/22 06/30/22 05:35 10:30 WBC RBC Hgb Hct MCV MCH MCHC RDW Coeff of Daniel Plt Count Neut % (Auto) Lymph % (Auto) [place] % (Auto) Eos % (Auto) Baso % (Auto) Neut # (Auto) Lymph # (Auto) [place] # (Auto) Eos # (Auto) Baso # (Auto) Sodium 125 L 128 L Potassium 3.8 4.1 Chloride 99 102 Carbon Dioxide 22 23 BUN 7 6 L Creatinine 0.7 0.7 Estimated Creat Clear 47.14 47.14 Estimated GFR 95 95 Glucose 94 112 Calcium 7.8 L 8.0 L Magnesium 1.9 Total Bilirubin Direct Bilirubin AST ALT Alkaline Phosphatase Troponin I < 0.01 L C-Reactive Protein Total Protein Albumin Lipase TSH 0.541 Ordering Physician: Gaetano Hodge M.D. Date of Service: 06/30/22 Procedure(s): US abdomen limited Accession Number(s): [id number] cc: Gaetano Hodge M.D.; Provider,Not a Local ~ For Patients:? As a result of the Cures Act, medical imaging exams and procedure reports are released immediately into your electronic medical record.? You may view this report before your referring provider.? If you have questions, please contact your health care provider. INDICATION: Epigastric abdominal pain. COMPARISON: Correlation is made with an abdominal pelvic CT June 28, 2022 TECHNIQUE: Real time dodd scale imaging and color Doppler analysis was performed of the right upper quadrant. FINDINGS: The patient`s liver is of normal size but demonstrates minimally increased echogenicity potentially reflecting fatty infiltration. There is a normal appearance of the hepatic IVC and proximal abdominal aorta. There is no evidence of ascites. The gallbladder is of normal size and there is no evidence of intraluminal stones or sludge.? The gallbladder wall measures 1.0 mm in thickness.? The common bile duct is of normal size and measures 5.0 mm in diameter at the level of the lyla hepatis.? The pancreas appears normal where seen but is incompletely visualized on this study. It was normal on the most recent CT. There is no evidence of a stone or hydronephrosis within the right kidney.? The right kidney measures 11.1 x 3.7 x 5.3 cm.? IMPRESSION: Questionable minor hepatic fatty infiltration. Otherwise normal right upper quadrant ultrasound. Dictated by Mark Busby MD @ 06/30/2022 9:08:01 AM (Electronically Signed)
[2022-06-30 14:35] LABS: Chloride* 101 mmol/L (96-114); Sodium* 128 mmol/L (135-149)
[2022-06-30 14:36] LABS: Potassium* 4.1 mmol/L (3.6-5.1)
[2022-06-30 14:38] LABS: Blood Urea Nitrogen* 5 mg/dL (7-30); Carbon Dioxide* 25 mmol/L (20-32); Creatinine* 0.8 mg/dL (0.5-1.5); Est. Creatinine Clearance* 47.14; Estimated Glomerular Filt Rate 81 ml/min
[2022-06-30 14:39] LABS: Calcium* 8.2 mg/dL (8.4-10.6); Glucose* 123 mg/dL (60-115)
[2022-06-30 15:01] VITALS: BP 140/55; PULSE 88; RESP 18; TEMP 36.6; O2SAT 96
[2022-06-30] MEDS: DOCUSATE SODIUM 100 MG CAPSULE PO (15:33)
[2022-06-30 19:30] VITALS: BP 135/63; PULSE 75; RESP 18; TEMP 37.1; O2SAT 96
[2022-06-30] MEDS: ATORVASTATIN CALCIUM 40 MG TABLET PO (21:03)
[2022-06-30 23:30] VITALS: BP 125/79; PULSE 72; RESP 18; TEMP 36.4; O2SAT 97
[2022-07-01 03:00] VITALS: BP 130/66; PULSE 73; RESP 18; TEMP 36.3; O2SAT 97
[2022-07-01] MEDS: LEVOTHYROXINE 100 MCG TABLET PO (06:09)
--- NOTE | 2022-07-01 06:54 | PC.NURSE ---
End of shift nursing note: Pt alert and oriented, in a very pleasant mood, stating she feels a lot better than when she admitted. Pt denies weakness, abd only tender upon palpation. IV to L forearm flushed and saline locked. Vitals stable, afebrile, on RA. Up in room ind, voiding without difficulty. Standing weight today 175.4lb, standing weight yesterday upon admission 184.9lbs, note pt has voided large amounts of urine since admission. Tolerating regular diet, asked for sandwich in evening before bed and ate 50%. Drinking fluids.?Pt has call light within reach and uses appropriately. ?
[2022-07-01 06:56] LABS: Chloride* 104 mmol/L (96-114)
[2022-07-01 06:57] LABS: Potassium* 4.4 mmol/L (3.6-5.1); Sodium* 134 mmol/L (135-149)
[2022-07-01 06:59] LABS: Creatinine* 0.9 mg/dL (0.5-1.5); Est. Creatinine Clearance* 47.14; Estimated Glomerular Filt Rate 70 ml/min
[2022-07-01 07:00] VITALS: BP 139/76; PULSE 74; RESP 18; TEMP 36.5; O2SAT 96
[2022-07-01 07:00] LABS: Blood Urea Nitrogen* 7 mg/dL (7-30); Calcium* 8.6 mg/dL (8.4-10.6); Carbon Dioxide* 29 mmol/L (20-32); Glucose* 91 mg/dL (60-115)
[2022-07-01] MEDS: OMEPRAZOLE 20 MG CAPSULE DR 40 MG PO (07:08)
[2022-07-01] MEDS: FOLIC ACID 1 MG TABLET PO (08:30)
[2022-07-01] MEDS: HYDROXYCHLOROQUINE 200 MG TABLET PO (08:30)
[2022-07-01] MEDS: PREGABALIN 75 MG CAPSULE PO (08:30)
[2022-07-01] MEDS: METOPROLOL SUCCINATE (XL) 25 MG TAB 12.5 MG PO (08:30)
[2022-07-01] MEDS: SODIUM CHLORIDE 0.9 % (FLUSH) 10 ML SYRINGE 5 ML IVF (08:31)
--- NOTE | 2022-07-01 09:29 | PM.DS1 ---
DS: Providers Provider Time Seen by Provider: 09:00 Date Seen: 07/01/22 Date of admission: 06/29/22 23:25 Primary care physician: Not a Local Provider Admitting Clinician: Gaetano Hodge MD Attending Physician on discharge: Rosio Dawkins MD Date of Discharge: 07/01/22 DS: Diagnosis Discharge Diagnosis (1) Gastritis: Status: Acute Problem details: Abdominal pain and vomiting. Suspect viral gastroenteritis, but unclear. CT and Ultrasound reassuring. Labs also reassuring. (2) Nicotine dependence: Status: Acute Problem details: Start Nicotrol inhaler. (3) Hyponatremia: Status: Acute Problem details: Acute hyponatremia likely due to intractable vomiting. In 1 day her sodium went from 130-115. Will treat this as an acute volume loss problem initially and monitor sodium closely. This is correcting quickly and IV fluids were discontinued. (4) Constipation: Status: Resolved Problem details: Added bowel meds. (5) Dehydration: Status: Resolved (6) Coronary artery disease: Status: Chronic Problem details: stable (7) Hypertension: Status: Chronic (8) Hyperlipidemia: Status: Chronic (9) Hypothyroidism: Status: Chronic (10) Rheumatoid arthritis: Status: Chronic DS: Summary Hospital Course Hospital Course: PCP - Please check BMP at visit on July 09. Also, consider further w/u or urology referral for circumferencial bladder wall thickening seen on CT with ongoing suprapubic tenderness and microscopic hematuria. This is a 66-year-old female who had sudden onset of epigastric and suprapubic abdominal pain followed by frequent emesis. These symptoms lasted for about 4 days. She had been seen in the ER initially and then again the next day at which time she was admitted for hyponatremia. Her sodium had dropped from 130-115 overnight. This was likely secondary to dehydration. It corrected with hydration and her sodium is 134 today on discharge. Epigastric abdominal pain has resolved. Suprapubic abdominal pain has improved, but is not completely gone. Circumferential bladder wall thickening was seen on CT and she did have microscopic hematuria on the urinalysis on the 1st presentation to the emergency department. Emesis has resolved and she is tolerating a general diet. And I spoke about tobacco cessation today. She stated that she was not completely ready yet but would talk with her about it, note that her is a nonsmoker, and would talk with her primary care provider about it. She is discharged home today in improved and stable condition. Time Spent with Patient Time attestation: Total time spent providing and/or coordinating discharge services: Exam Narrative: Exam Narrative: General: No acute distress. Awake, alert, oriented x3. No pallor. No jaundice. Oropharynx: Clear. Mucous membranes moist. Cardiovascular: Regular rate and rhythm. No murmurs, gallops, or rubs. Respiratory: Clear to auscultation bilaterally. No wheezes or crackles. Abdomen: Bowel sounds present. Soft, nondistended, there is no epigastric tenderness, abdomen is nontender with the exception of mild tenderness in the suprapubic area, this is slightly improved from yesterday's exam. Const: Vital Signs, click to edit/add: Vital Signs - 24 hr 06/30/22 12:00 06/30/22 15:01 06/30/22 19:30 Temperature 98.7 F 97.8 F 98.7 F Pulse Rate [Right Pulse Oximeter] 76 88 75 Respiratory Rate 18 18 18 Blood Pressure [Le ft Arm] 150/67 H 140/55 H 135/63 Pulse Oximetry 95 96 96 Oxygen Delivery Me thod Room Air Room Air Room Air 06/30/22 23:30 06/30/22 23:30 07/01/22 03:00 Temperature 97.5 F L 97.4 F L Pulse Rate [Right Pulse Oximeter] 72 72 73 Respiratory Rate 18 18 18 Blood Pressure [Le ft Arm] 125/79 130/66 Pulse Oximetry 97 97 Oxygen Delivery Me thod Room Air Room Air 07/01/22 07:00 Temperature 97.7 F Pulse Rate [Right Pulse Oximeter] 74 Respiratory Rate 18 Blood Pressure [Le ft Arm] 139/76 Pulse Oximetry 96 Oxygen Delivery Me thod Room Air Documenting provider has reviewed patient's vital signs: yes DS: Data Data Completed and Pending Labs on day of discharge: Labs from last 24 hours 07/01/22 06/30/22 06/30/22 06:27 14:18 10:30 Sodium 134 L 128 L 128 L Potassium 4.4 4.1 4.1 Chloride 104 101 102 Carbon Dioxide 29 25 23 BUN 7 5 L 6 L Creatinine 0.9 0.8 0.7 Estimated Creat Clear 47.14 47.14 47.14 Estimated GFR 70 81 95 Glucose 91 123 H 112 Calcium 8.6 8.2 L 8.0 L 06/30/22 06/29/22 00:02 00:02 Sodium 117 L* Cancelled Potassium Chloride Carbon Dioxide BUN Creatinine Estimated Creat Clear Estimated GFR Glucose Calcium Urine Color Collected Result Units Reference 06/28/22 19:30 Yellow Yellow Urine Appearance Collected Result Units Reference 06/28/22 19:30 Clear Clear Urine pH Collected Result Units Reference 06/28/22 19:30 7.0 5.0-8.5 Ur Specific [place] Collected Result Units Reference 06/28/22 19:30 1.010 1.000-1.030 Urine Protein Collected Result Units Reference 06/28/22 19:30 Negative Negative Urine Glucose (UA) Collected Result Units Reference 06/28/22 19:30 Negative Negative Urine Ketones Collected Result Units Reference 06/28/22 19:30 1+ A Negative Urine Blood Collected Result Units Reference 06/28/22 19:30 Trace-intact A Negative Urine Nitrite Collected Result Units Reference 06/28/22 19:30 Negative Negative Urine Bilirubin Collected Result Units Reference 06/28/22 19:30 Negative Negative Urine Urobilinogen Collected Result Units Reference 06/28/22 19:30 0.2 0.2-1.0 Ur Leukocyte Esterase Collected Result Units Reference 06/28/22 19:30 Negative Negative Urine RBC Collected Result Units Reference 06/28/22 19:30 5-10 A 0-2 Urine WBC Collected Result Units Reference 06/28/22 19:30 0-2 0-5 Ur Squamous Epith Cells Collected Result Units Reference 06/28/22 19:30 Few None-Few Urine Bacteria Collected Result Units Reference 06/28/22 19:30 None None 06/28/2022 1856 EKG: Normal sinus rhythm, 80 beats per minute. Nonspecific ST and T-wave abnormality. Ordering Physician: Chintan Sherwood M.D. Date of Service: 06/28/22 Procedure(s): CT abdomen pelvis w con Accession Number(s): [id number] cc: Chintan Sherwood M.D.; Provider,Not a Local ~ For Patients: As a result of the Cures Act, medical imaging exams and procedure reports are released immediately into your electronic medical record. You may view this report before your referring provider. If you have questions, please contact your health care provider. INDICATION: abdominal pain TECHNIQUE: CT abdomen and pelvis acquired with 84 cc Isovue 370 IV contrast. COMPARISON: None. FINDINGS: Lower chest: Scattered areas of mosaic attenuation within the lung bases. Coronary artery calcifications. ABDOMEN: Liver: Normal enhancement. No focal suspicious hepatic lesions. Gallbladder and biliary: Normal gallbladder without radiopaque stone. Normal caliber bile ducts. Spleen: Normal size and enhancement. Pancreas: Normal enhancement without peripancreatic inflammatory changes or ductal dilatation. Adrenal glands: Normal adrenal glands. Kidneys and ureters: Normal enhancement. No radio-opaque calculi. No hydroureteronephrosis. Subcentimeter hypodensities are too small to characterize however statistically represent cysts. GI tract: Tiny hiatal hernia. Normal caliber small and large bowel loops. Appendix is not definitively visualized. Colonic diverticulosis without diverticulitis. Vascular structures: Patent abdominal aorta with atherosclerotic vascular calcifications. Lymph nodes: No lymphadenopathy in the abdomen or pelvis by size criteria. Peritoneum: No free air, free fluid, or focal drainable fluid collection. PELVIS: Genitourinary system: Mild circumferential wall thickening of the urinary bladder. 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 SKELETAL STRUCTURES AND SOFT TISSUES: Heterotopic ossification abutting the ischial tuberosities likely reflecting remote hamstrings injuries. Posterior spinal process fusion. Multilevel lumbar spondylosis. IMPRESSION: 1. No definite acute abdominal or pelvic process in no obstruction. No hydroureteronephrosis. Colonic diverticulosis without diverticulitis. 2. Mild circumferential wall thickening of the urinary bladder. Recommend correlation with urinalysis to assess for underlying cystitis. Please note that all CT scans at this facility use dose modulation, iterative reconstruction, and/or weight-based dosing when appropriate to reduce radiation dose to as low as reasonably achievable. Dictated by Scott Borges MD @ 06/28/2022 9:00:50 PM (Electronically Signed) Ordering Physician: Scott Scott M.D. Date of Service: 06/29/22 Procedure(s): XR abdomen min 2V Accession Number(s): [id number] cc: Provider,Not a Local ; Scott Scott M.D.~ For Patients: As a result of the Cures Act, medical imaging exams and procedure reports are released immediately into your electronic medical record. You may view this report before your referring provider. If you have questions, please contact your health care provider. Indication: Vomiting and constipation. Technique: Abdomen 4 view. Comparison: None. Findings/Impression: Bowel: Bowel pattern is normal. Mild colonic stool burden. Soft tissues: No sign of free air. No sign of soft tissue mass. No suspicious calcifications. Bones: Unremarkable for age. Dictated by Wolf Croft MD @ 06/29/2022 11:24:30 PM (Electronically Signed) Ordering Physician: Gaetano Hodge M.D. Date of Service: 06/30/22 Procedure(s): US abdomen limited Accession Number(s): [id number] cc: Gaetano Hodge M.D.; Provider,Not a Local ~ For Patients: As a result of the Cures Act, medical imaging exams and procedure reports are released immediately into your electronic medical record. You may view this report before your referring provider. If you have questions, please contact your health care provider. INDICATION: Epigastric abdominal pain. COMPARISON: Correlation is made with an abdominal pelvic CT June 28, 2022 TECHNIQUE: Real time dodd scale imaging and color Doppler analysis was performed of the right upper quadrant. FINDINGS: The patient`s liver is of normal size but demonstrates minimally increased echogenicity potentially reflecting fatty infiltration. There is a normal appearance of the hepatic IVC and proximal abdominal aorta. There is no evidence of ascites. The gallbladder is of normal size and there is no evidence of intraluminal stones or sludge. The gallbladder wall measures 1.0 mm in thickness. The common bile duct is of normal size and measures 5.0 mm in diameter at the level of the lyla hepatis. The pancreas appears normal where seen but is incompletely visualized on this study. It was normal on the most recent CT. There is no evidence of a stone or hydronephrosis within the right kidney. The right kidney measures 11.1 x 3.7 x 5.3 cm. IMPRESSION: Questionable minor hepatic fatty infiltration. Otherwise normal right upper quadrant ultrasound. Dictated by Mark Busby MD @ 06/30/2022 9:08:01 AM (Electronically Signed) Discharge Plan Discharge Disposition: Home, Self-Care Date of Admission: 06/29/22 23:25 Attending Provider on Discharge: Rosio Dawkins Primary Care Provider: Provider,Not a Local Condition: Improved Anticipated Discharge Date/Time: 07/01/22 09:47 Discharge Medications: Continued pantoprazole [Protonix] 20 mg tablet,delayed release (DR/EC) 20 mg PO DAILY Qty: 20 2RF atorvastatin 40 mg tablet 40 mg PO DAILY lisinopril 20 mg tablet 20 mg PO DAILY levothyroxine 100 mcg tablet 100 mcg PO DAILY methotrexate sodium 2.5 mg tablet 20 mg PO Rx Instructions: 8 tablets weekly on Friday folic acid 1 mg tablet 1 mg PO DAILY hydroxychloroquine 200 mg tablet 200 mg PO DAILY metoprolol succinate 25 mg tablet extended release 24 hr 12.5 mg PO DAILY pregabalin 75 mg capsule 75 mg PO BID aspirin 325 mg tablet 325 mg PO DAILY ibuprofen 200 mg capsule 400 mg PO DAILY PRN calcium carbonate [Calcium 600] 600 mg calcium (1,500 mg) tablet 1,200 mg PO DAILY cholecalciferol (vitamin D3) .ROUTE Rx Instructions: DAILY D3, UNKNOWN DOSE Discharge Orders: Discharge Order (Routine); Ordered 07/01/22 Ordered By: Rosio Dawkins Patient Education: How to Stop Smoking (DC), Hyponatremia (DC), Cigarette Smoking and Your Health (GEN), Gastroenteritis (DC) Additional Instructions: I recommend that you cease tobacco use. I understand that you were not ready to quit today per our conversation, but I recommend that you talk with your PCP about help quitting. PCP - Please check BMP at visit on July 09. Also, consider further w/u or urology referral for circumferencial bladder wall thickening seen on CT with ongoing suprapubic tenderness and microscopic hematuria. Activity Level: No Restrictions Discharge Diet: Low Fat/Low Cholesterol Follow Up Appointments: Provider,Not a Local [Primary Care Provider] - (Sebas Galloway MD, [facility], July 09 BMP) Forms: [employer] Info Instructions
--- NOTE | 2022-07-01 10:45 | PC.NURSE ---
Patient alert and oriented x 3, denies any pain. Lung sounds clear, bowel sounds active x 4 quadrants. Patient tolerating foods and fluids without nausea or vomiting. Independent with ambulation. Discharged home at 1030 via private vehicle accompanied by spouse.
== END 2022-07-01 10:30 | disposition home or self-care (01) | DRG 392 ==
LOC: ED 22:39 → MEDSURG 22:47
PROVIDERS: Internal Medicine; Admitting Provider Family Medicine; Emergency Provider Family Medicine; Visit Provider Family Medicine
DX: K29.00 Acute gastritis without bleeding (principal); E87.1 Hypo-osmolality and hyponatremia; A08.4 Viral intestinal infection, unspecified; E86.0 Dehydration; K59.00 Constipation, unspecified; M06.9 Rheumatoid arthritis, unspecified; I25.10 Atherosclerotic heart disease of native coronary artery without angina pectoris; I10 Essential (primary) hypertension; E78.5 Hyperlipidemia, unspecified; E03.9 Hypothyroidism, unspecified; M54.50 Low back pain, unspecified; G89.29 Other chronic pain; F17.210 Nicotine dependence, cigarettes, uncomplicated; Z95.1 Presence of aortocoronary bypass graft; R31.29 Other microscopic hematuria
CPT/HCPCS: 36415; 74019; 76705; 80048; 80076; 83690; 83735; 84295; 84443; 84484; 85025; 86140; 99199; 99284; A9270; J1200; J2060; J2405; J2765; J7030

== ENCOUNTER 2024-08-28 13:01 | Emergency (ER) | payer MEDICARE, SELFPAY ==
--- OUTSIDE RECORDS SUMMARY | 2024-08-28 13:04 | XMS_ITS | Clinical Summary ---
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 Owner Name Role Phone Sebas Galloway MD Primary Care Provider [phone] Allergies Active Allergy Reactions Criticality Noted Date Comments Penicillins Rash Low 05/18/2017 Medications ATENOLOL PO Take 12.5 mg by mouth Active METHOTREXATE POIndications:Rh eumatoid Arthritis Take 12.5 mg by mouth once a week Active LISINOPRIL POIndications:Hy pertension Take 20 mg by mouth Active ATORVASTATIN CALCIUM PO Take 40 mg by mouth Active LEVOTHYROXINE SODIUM PO Take 12.5 mcg by mouth Active DICLOFENAC SODIUM PO Take 50 mg by mouth Active VITAMIN D, CHOLECALCIFEROL, PO Take 5,000 Units by mouth daily Active FOLIC ACID PO Take 2 mg by mouth daily Active calcium-vitamin D (CALTRATE) 600-400 MG-UNIT per tablet Take 1 tablet by mouth 2 times daily Active Ferrous Sulfate (IRON SUPPLEMENT PO) Active ASPIRIN PO Take 325 mg by mouth Active BusPIRone HCl (BUSPAR PO) Active hydroxychloroqui ne (PLAQUENIL) 200 MG tablet Take 200 mg by mouth daily Active Immunizations Immunization Administration Dates Next Due Influenza (H1N1) 01/27/2009 Social History Tobacco Use Types Packs/Day Years Used Date Smoking Tobacco: Every Day Cigarettes Comments Unknown Sex and Gender Information Value Date Recorded Sex Assigned at Not on file 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 Gender Identity Not on file Sexual Orientation Not on file Last Filed Vital Signs Vital Sign Reading Time Taken Comments Blood Pressure 149/68 05/18/2017 7:15 PM CDT Pulse - - Temperature 37.2 C (99 F) 05/18/2017 3:30 PM CDT Respiratory Rate 18 05/18/2017 3:30 PM CDT Oxygen Saturation 98% 05/18/2017 7:06 PM CDT Inhaled Oxygen Concentration - - Weight - - Height - - Body Mass Index - - Plan of Treatment Not on file Insurance [employer] MEDICARE ADVANTAGE Care Teams Laundrette Owner Relationship Specialty Start Date End Date Sebas Galloway MD [facility] [address] [place], [place] [id number] PCP - General Family Practice 07/12/11
--- OUTSIDE RECORDS SUMMARY | 2024-08-28 13:04 | XMS_ITS | Clinical Summary ---
[facility] Address [address], [place] [address] Care Team Providers Care Stamping Die Maker Bench Name Role Phone Sebas Galloway MD Primary Care Provider [phone] Source Comments You are receiving this document as you are listed as the primary care provider,follow-up provider, or the patient has been referred to you for consultation.This is in compliance with the Medicare and[facility] EHR Incentive Program,which states Providers who transition their patient to another setting of careor provider of care or refers their patient to another provider of care shouldprovide summary care record for each transition of care or referral. [email or web address] Allergies Active Allergy Reactions Criticality Noted Date Comments Penicillins 05/27/2011 Medications aspirin 325 MG tablet Take 1 Tablet (325 mg) by mouth daily. 2 Active Ibuprofen (ADVIL OR) Take 2 Tablets by mouth two times a day. Pt takes 2 tablets in am and 2 tablets at 5:00pm Active Cholecalciferol (VITAMIN D3) 25 MCG (1000 UT) taIndications:Ost eoporosis, unspecified osteoporosis type, unspecified pathological fracture presence (HRC) TAKE 1 TABLET EVERY DAY 90 Tablet 3 3 Active calcium carbonate 1500 (600 Ca) MGIndications:Ost eoporosis, unspecified osteoporosis type, unspecified pathological fracture presence (HRC) TAKE 1 TABLET TWICE DAILY 180 Tablet 2 3 Active lisinopril (ZESTRIL) 20 MG tablet Take 1 Tablet (20 mg) by mouth. 3 Active metoprolol succinate (TOPROL XL) 25 MG 24 hour release tablet Take 0.5 Tablets (12.5 mg) by mouth daily. 3 Active levothyroxine (SYNTHROID) 75 MCG tablet Take 1 Tablet (75 mcg) by mouth daily. 4 Active atorvastatin (LIPITOR) 40 MG tablet Take 1 Tablet (40 mg) by mouth daily. 4 Active pregabalin (LYRICA) 75 MG capsuleIndication s:Chronic bilateral low back pain without sciatica Take 1 Capsule (75 mg) by mouth two times a day. 180 Capsule 1 5 Active hydroxychloroquin e (PLAQUENIL) 200 MG tabletIndications :Rheumatoid arthritis involving multiple sites with positive rheumatoid factor (HRC),High risk medication use Take 1 Tablet (200 mg) by mouth two times a day. 180 Tablet 3 5 Active folic acid 1 MG tabletIndications :Rheumatoid arthritis involving multiple sites with positive rheumatoid factor (HRC),High risk medication use Take 1 Tablet (1 mg) by mouth daily. 90 Tablet 3 5 Active methotrexate 2.5 MG tabletIndications :Rheumatoid arthritis involving multiple sites with positive rheumatoid factor (HRC),High risk medication use Take 7 Tablets (17.5 mg) by mouth once every week. 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 03/22/2020 Overview (03/22/2020): Added automatically from request for surgery [id number] Osteoporosis 03/16/2020 High risk medication use 07/08/2019 Primary osteoarthritis involving multiple joints 07/08/2019 Sacroiliac dysfunction 05/21/2012 Trochanteric bursitis 05/21/2012 Vitamin D deficiency 11/08/2011 Radiculopathy, lumbar region 05/27/2011 Chronic headaches 01/18/2010 Chronic low back pain 01/18/2010 Congenital foot deformity 01/18/2010 Hyperlipidemia 01/18/2010 Hypothyroidism 01/18/2010 Rheumatoid arthritis 12/12/2009 Coronary atherosclerosis 09/19/2009 HTN (hypertension) 09/19/2009 Immunizations Immunization Administration Dates Next Due Flu Vac (3+ yrs) 12/12/2008,01/10/2005 [id number] 01/27/2009 IPV (Polio) 01/12/1998 Influenza IIV4 (Quadrivalent ) Fluad, 65+ Yrs 12/19/2020,11/15/2019 PPSV23 (Pneumovax) 03/14/2006 Pfizer Monovalent 12+ Purple Top 12/20/2020,04/06/2020,05/24/2020 Td 07/27/2003 Tdap 12/13/2013 Family History Medical History Relation Name Comments Cataract Father Glaucoma Father Rheumatologic Disease Father Cataract Mother Heart Disease Mother Heart Disease Maternal Grandmother Amblyopia/Strabismus Negative Family History Anesthesia Reaction Negative Family History Blindness Negative Family History Broken Bones Negative Family History Cancer Negative Family History Clotting Disorder Negative Family History Diabetes Negative Family History Macular Degeneration Negative Family History Osteoporosis Negative Family History Retinal Detachment Negative Family History Relation Name Status Comments Father Mother Maternal Grandmother Social History Tobacco Use Types Packs/Day Years Used Date Smoking Tobacco: Every Day Cigarettes Smokeless Tobacco: Never Tobacco Cessation:Ready to Q uit: Not Asked; Counseling Given: Not Answered Alcohol Use Standard Drinks/Week Comments Yes 0 (1 standard drink = 0.6 oz pur e alcohol) Rarely Comments Unknown Sex and Gender Information Value Date Recorded Sex Assigned at Not on file Legal Sex Female 5:41 PM CDT Gender Identity Not on file Sexual Orientation Not on file Last Filed Vital Signs Vital Sign Reading Time Taken Comments Blood Pressure 103/58 08/24/2020 10:45 AM CDT Pulse 83 08/24/2020 10:45 AM CDT Temperature 36.3 C (97.3 F) 11/10/2020 11:24 AM CDT Respiratory Rate 20 08/24/2020 10:45 AM CDT Oxygen Saturation 100% 08/24/2020 10:45 AM CDT Inhaled Oxygen Concentration - - Weight 81.2 kg (179 lb) 05/27/2023 3:08 PM CDT p t reported Height 160 cm (5' 2.99) 07/27/2020 11:53 AM CDT Body Mass Index 31.72 07/27/2020 11:53 AM CDT Plan of Treatment Upcoming Encounters Date Type Department Care Team (Late st Contact Info) Description 09/06/2024 12:00 PM CDT Appointment Rheumatology at [facility] [id number] [place] [id number] Matthew Rios MD [address] [place], [place] [id number] Health Maintenance Due Date Last Done Comments Colon Cancer Screening Plan Due 1955 Cholesterol 10/31/1999 Zoster/Shingles Vaccine (1 of 2) 2004 Pneumococcal Vaccine 50+ Yrs (2 of 2 - PCV) 03/14/2007 03/14/2006 COVID-19 Vaccine ( season) 2023 12/20/2020, 06/14/2020, 05/24/2020 DTaP/Tdap/Td Vaccine (2 - Tdap) 12/14/2023 12/13/2013, 07/27/2003 Medicare Annual Wellness Visit 03/03/2024 Mammogram 10/01/2024 10/02/2023, 0703/2022, 05/09/2021, Additional history exists Dexa 11/25/2024 11/25/2022, 03/0 10/2020, 05/08/2020, Additional history exists RSV Vaccine (1 - 1-dose 75+ series) 2029 Hep C Screening (Preventive Services) Completed 04/09/2018 Influenza Vaccine Completed 12/22/2023, , 12/27/2021, Additional history exists HepA Vaccine Aged Out No longer eligi ble based on patient's age to complete this topic HepB Vaccine Aged Out No longer eligi ble based on patient's age to complete this topic Hib Vaccine Aged Out No longer eligi ble based on patient's age to complete this topic MCV4 Vaccine Aged Out No longer eligi ble based on patient's age to complete this topic Meningococcal B Vaccine Aged Out No l onger eligible based on patient's age to complete this topic Medical Devices Implanted Type Area Pharmacy Cashier Device Identifier Shelf Expiration Date Model / Serial / Lot Lens Iol Tecnis Zcb00 21.5 - [id number] Implanted:Qty: 1 on 08/10/2020 by Tonja Bustamante MD at [facility] DEVICE Right: EYE [employer] 01/14/2024 ZCB00.215 / [id number] / Lens Iol Tecnis Zcb00 20.0 - [id number] Implanted:Qty: 1 on 08/24/2020 by Tonja Bustamante MD at [facility] DEVICE Left: EYE [employer] 02/11/2024 ZCB00.200 / [id number] / NA Procedures Procedure Name Priority Date/Time Associated Diagnosis Comments DXA BONE DENSITY SPINE/HIP INC VERT FX ASSESS Routine 11/25/2022 1:32 PM CDT Osteoporosis, unspecified osteoporosis type, unspecified pathological fracture presence (HRC) HEPATITIS C ANTIBODY, WITH REFLEX (ANTI-HCV) Routine 04/09/2018 11:14 AM LOADING SHOVEL OILER Rheumatoid arthritis, involving unspecified site, unspecified rheumatoid factor presence (HRC) from Last 3 Months or Most Recently Relevant to Health Maintenance Results * DXA Bone Density Spine/Hip Inc Vert FX Assess (11/25/2022 1:32 PM CDT) Pathologist [facility] DXA Lumbar Spine Bone Mineral Density 1.169 gm/cm2 EXTERNAL RESULTS DXA Lumbar Spine T-Score 1.0 EXTERNAL RESULTS DXA Lumbar Spine Z-Score 3.0 EXTERNAL RESULTS DXA Hip Left Bone Mineral Density 0.891 gm/cm2 EXTERNAL RESULTS DXA Hip Left T-Score -0.4 EXTERNAL RESULTS DXA Hip Left Z-Score 1.0 EXTERNAL RESULTS DXA Femur Left Bone Mineral Density 0.662 gm/cm2 EXTERNAL RESULTS DXA Femur Left T-Score -1.7 EXTERNAL RESULTS DXA Femur Left Z-Score 0.0 EXTERNAL RESULTS Anatomical Region Laterality Modality Spine, Hip Radiographic Margy ging Narrative 11/26/2022 9:41 AM CDT Table formatting from the original result was not included. Patient Name: Ban Monsalve Densitometer: Klip.in W Appt Dept/Resource: [facility] Bone Density SIDDI[facility]I BONE Demographics Age: 67 y.o. Gender: Female Height: 5' 2.99 (1.6 m) Height at age 24: 5.4 Weight: 175 lb 7.8 oz (79.6 kg) Race: Medical/Surgical History Menstrual periods: None Age of menopause: 44 Able to stand from a chair easily without use of the arms?: Yes, easily How many falls indoors/outdoors within the last 12 months?: 0 History of fractures in parents: No History of previous fractures?: No Hip replacement?: No Oral cortisone or steroid medication for more than 3 months?: No Currently or have taken medications to treat osteoporosis?: No Taking any aromatase inhibitor medication for breast cancer - anti-estrogen excluding tamoxifen?: No Have had the following medical conditions: Rheumatoid Arthritis Dietary/Habit Alcohol 3 units or more per day on average?: No Currently smoking tobacco? Yes Daily servings of calcium rich food: 1 Do you take a daily calcium supplement?: Yes, once per day Dual-X-ray Absorptiometry (DXA) Results Skeletal Site BMD (gm/cm2) T-Score Z-Score % Change from Previous Scan dated: N/A Spine (L2, L3) 1.169 1.0 3.0 N/A Left Hip (Total) 0.891 -0.4 1.0 N/A Left Hip (Femoral neck) 0.662 -1.7 0.0 N/A *N/A indicates that measurements were either not needed or not valid TBS: Trabecular Bone Score (TBS): 1.234 FRAX Score: 10 Year Risk Hip Fracture: 3.3% 10 Year Risk Major Osteoporotic Fracture: 13.8% VERTEBRAL FRACTURE ASSESSMENT: Range of evaluable vertebra; T5 through L5 Grade 1 vertebral fracture(s) are present at vertebral level(s) T8, question of T10 as well. Comments: *This is a baseline study at this center (no comparison) Diagnosis: *Low bone mass (osteopenia) of left hip. Patient has a mildly increased risk of fracture Recommendations:. *Recommend lifestyle modifications as needed, including proper calcium/vitamin d intake, weight bearing exercises, and fall prevention. *Consider evaluation of secondary causes of bone loss if not previously performed. *Consider starting pharmacologic fracture prevention therapy, such as with an oral bisphosphonate, if there are no contraindications. For assistance, an Osteoporosis/Osteopenia Treatment Smart Set is available in the [facility]. *Consider follow up DXA in 2 years, unless clinical circumstances change. *Consider lateral thoracic spine x-ray if documentation of a vertebral fracture at T8 and T10 would alter therapy recommendations and/or patient decision whether or not to accept pharmacologic fracture prevention therapy. Changes of spine and total hip bone density = 0.03 g/cm2 are beyond densitometer precision error and generally are considered significant when the current and prior studies were done on the same densitometer. FRAX Explanation: The 10 year risks of hip and major osteoporotic fractures (clinical spine, forearm, hip or shoulder fracture) are calculated by the FRAX algorithm based on femoral neck bone density, age, gender, race/ethnicity, weight, height, previous fracture, parental hip fracture, smoking status, glucocorticoid intake, history of RA, secondary osteoporosis, and high alcohol consumption. FRAX fracture risk estimates are adjusted for Trabecular Bone Score (TBS) when available. Trabecular Bone Score (TBS) is a measure of the microarchitectural integrity of trabecular bone, and is derived from the [id number] changes of bone density embedded in the AP spine BMD image. TBS is only modestly correlated with BMD, and is modestly associated with incident major osteoporotic and hip fractures independent of BMD and other risk factors. FRAX Fracture Risk Categories in terms of major osteoporotic fractures: < 10% = low fracture risk = 10% and <15% = mildly increased fracture risk = 15% and <20% = moderately increased fracture risk = 20% and <30% = high fracture risk = 30% = very high fracture risk National Osteoporosis Foundation Treatment Guideline A clinician may consider FDA-approved medical therapies in postmenopausal women and men aged 50 years and older, if one or more of the following is present (clinical correlation required and therapy may not always be indicated): The patient has a hip or vertebral fracture. T-score = -2.5 at the femoral neck, hip, or spine after appropriate evaluation to exclude secondary causes. Low bone mass (T-score between -1.0 and -2.5 at the femoral neck, hip or spine) and a 10-year probability of a hip fracture = 3% or a 10-year probability of a major osteoporosis-related fracture = 20% based on the FRAX scores. Matthew Rios MD RAD DEXA Final Result * [facility] - Hepatitis C Virus Lachelle with Reflex In-House (04/09/2018 11:14 AM LOADING SHOVEL OILER) Hepatitis C Antibody Nonreactive Nonreactive PN SOFT 04/09/2018 11:1 4 AM LOADING SHOVEL OILER 04/09/2018 4:19 PM LOADING SHOVEL OILER Narrative PN SOFT - 04/09/2018 5:01 PM LOADING SHOVEL OILER Performed at [address] [address] CLIA number [id number] Elaina Fields MD LAB_1 Final Resul t PN SOFT [address] [place] [phone] from Last 3 Months or Most Recently Relevant to Health Maintenance Insurance MEDICARE ADVANTAGE [facility] MEDICARE ADVANTAGE Advance Directives * Full Code (Latest Code Status on File) Date Activated Date Inactivated Comments 03/31/2020 8:31 AM 03/31/2020 12:06 PM Care Teams Stamping Die Maker Bench Relationship Specialty [place] [address] [place] [address] PCP - General 06/25/12
--- OUTSIDE RECORDS SUMMARY | 2024-08-28 13:04 | XMS_ITS | Clinical Summary ---
Author Organization [facility] Address [address] [place] [id number] Care Team Providers Care Auto Body Man Name Role Phone Sebas Galloway MD Primary Care Provider Allergies Active Allergy Reactions Criticality Noted Date Comments Penicillins Rash Low 08/03/2009 Medications Calcium-Cholecalci ferol, D3, (CALCIUM 500 + D, D3,) 500-125 mg-unit Tab Take 1 tablet by mouth once daily. 0 01/19/20 10 Active aspirin 325 mg tablet Take 1 tablet by mouth. Every other day 0 01/19/20 10 Active Cholecalciferol, Vitamin D3, (VITAMIN D-3) 400 unit capsule Take 5,000 Units by mouth. Active folic acid 1 mg tabletIndications: Folate deficiency Take 6 Tablets (6 mg) by mouth once daily. 540 Tablet 2 02/18/20 23 Active Additional Information Patient taking differently: 2 mgOral DAILY, Reported on 12/22/2023 lisinopriL (PRINIVIL; ZESTRIL) 20 mg tabletIndications: HTN (hypertension) Take 1 Tablet (20 mg) by mouth once daily. 30 Tablet 2 12/22/19 24 Active atorvastatin (LIPITOR) 40 mg tabletIndications: Other hyperlipidemia Take 1 Tablet (40 mg) by mouth once daily. 90 Tablet 3 12/22/19 24 Active metoprolol succinate (TOPROL XL) 25 mg Sustained-Release tabletIndications: Hypertension Take 0.5 Tablets (12.5 mg) by mouth two times daily. 90 Tablet 3 12/22/19 24 Active pregabalin (LYRICA) 75 mg capsuleIndications :Chronic midline low back pain without sciatica Take 1 Capsule (75 mg) by mouth two times daily. 180 Capsule 3 12/22/19 24 Active hydroxychloroquine (PLAQUENIL) 200 mg tabletIndications: Rheumatoid arthritis, involving unspecified site, unspecified whether rheumatoid factor present (HC) Take 2 Tablets (400 mg) by mouth once daily. 180 Tablet 3 12/22/19 24 Active methotrexate (RHEUMATREX) 2.5 mg tabletIndications: Seropositive rheumatoid arthritis (HC) Take 10 Tablets (25 mg) by mouth once weekly. Takes 8 tabs by mouth weekly 96 Tablet 3 12/22/19 24 Active levothyroxine 100 mcg tabletIndications: Hypothyroidism (acquired) Take 1 Tablet (100 mcg) by mouth before breakfast. 90 Tablet 08/22/19 25 Active levothyroxine (SYNTHROID) 100 mcg tabletIndications: Hypothyroidism (acquired) Take 1 Tablet (100 mcg) by mouth before breakfast. 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 Rheumatoid arthritis(714.0) 12/12/2009 CAD, s/p 4 V CABG, 1997 09/19/2009 HTN (hypertension) 09/19/2009 Resolved Problems Problem Noted Date Diagnosed Date Resolved Date Routine health maintenance 11/10/2012 0 03/23/2020 Chronic headaches 01/18/2010 03/23/2020 Encounters Date Type Department Care Team Description 08/19/2024 Refill [facility] [address] [place] [address] Sebas Galloway MD Refill Request (Levothyroxine) from Last 3 Months Immunizations Immunization Administration Dates Next Due Amb Influenza, Inactivated A IIV4 (Age 65+ Years) Preserv Free 11/15/2019 COVID-19 vaccine (Pfizer-Bio NTech 30mcg/0.3mL) PF, MDV 12/20/2020,06/14/2020,05/24/2020 Inactivated Polio Vaccine 01/12/1998 Influenza A (H1N1), Inactivated 01/27/2009 Influenza, IIV3 (Age >=3 years) 12/12/2008,01/10 Influenza, Inactivated AIIV4 (Age 65+ Years) Preserv Free 12/19/2022,12/27/2021,12/19/2020 Influenza, Inactivated IIV3 (Age 65+ Years) Preserv Free 12/22/2023 Pneumococcal Poly,23-Valent (Pneumovax) 03/14/19 07 Td (Age >=7 Years) 07/27/2003 Tdap 12/13/2013 Family History Medical History Relation Name Comments Hyperlipidemia Brother 1 Hyperlipidemia Brother 2 Hyperlipidemia Brother 3 Hypertension Brother 4 Hypertension Brother 5 Hypertension Brother 6 Alcohol/Drug Father Hyperlipidemia Father Hypertension Father Heart Disease Maternal Grandmother Heart Disease Mother Hyperlipidemia Mother Hypertension Mother Stroke Mother Stroke Paternal Grandfather Relation Name Status Comments Brother 1 Brother 2 Brother 3 Brother 4 Brother 5 Brother 6 Father Maternal Grandmother Mother Paternal Grandfather Social History Tobacco Use Types Packs/Day Years Used Date Smoking Tobacco: Every Day Cigarettes 0.5 14.4 Started: 03/23/2010 Smokeless Tobacco: Never Tobacco Cessation:Ready to Q uit: No; Counseling Given: No Comments:3/4 a pack. Alcohol Use Standard Drinks/Week Comments Yes 0 (1 standard drink = 0.6 oz pur e alcohol) Beer twice a month. PHQ-2 Answer Date Recorded PHQ-2 TOTAL SCORE 0 12/22/2023 Social Connections Answer Date Recorded Do you often feel lonely or isolated from those around you? 0 12/22/2023 Financial Resource Strain Answer Date R ecorded Difficulty of Paying Living Expenses 3 12/22/2023 Difficulty of Paying Living Expenses Not on file 12/22/2023 Food Insecurity Answer Date Recorded Do you worry your food will run out before you are able to buy more? 1 12/22/2023 Transportation Needs Answer Date Record ed Does lack of transportation keep you from medica l appointments? 1 12/22/2023 Does lack of transportation keep you from work, meetings or getting things that you need? 1 12/22/2023 Housing Stability Answer Date Recorded What is your housing situation today? 1 12/22/2023 Utilities Answer Date Recorded Do you have trouble paying f or utilities (for example, heat, electricity, water, phone)? 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 Gender Identity Not on file Sexual Orientation Not on file Obstetrics History Last Filed Vital Signs Vital Sign Reading Time Taken Comments Blood Pressure 140/62 12/22/2023 12:25 PM CDT Pulse 76 12/22/2023 12:25 PM CDT Temperature 37 C (98.6 F) 12/30/2019 11:33 AM CDT Respiratory Rate 15 11/17/2016 12:48 PM CDT Oxygen Saturation 96% 12/22/2023 12:25 PM CDT Inhaled Oxygen Concentration - - Weight 84.2 kg (185 lb 9.6 oz) 12/22/2023 12:25 PM CDT Height 156.2 cm (5' 1.5) 12/22/2023 12:25 PM CD T Body Mass Index 34.5 12/22/2023 12:25 PM CDT Plan of Treatment Health Maintenance Due Date Last Done Comments Zoster (shingles) series for age 50+ (1 of 2) 1973 Pneumococcal series for age 50+ (2 of 2 - PCV) 03/14/2007 03/14/2006 RSV vaccine for adults or (1 - Risk 60-74 years 1-dose series) 2014 COVID-19 vaccine series ( season) 2023 12/20/2020, 06/14/2020, 05/24/2020 Tetanus booster 12/14/2023 12/13/2013, 07/27/2003 Mammogram for age 45-75 10/01/2024 10/02/19, 09/10/2022, 05/09/2021, Additional history exists BMI (ht and wt on same day) for age 18+ 12/21/2024 12/22/2023, 12/19/2022, 11/09/2021, Additional history exists Depression screening for age 12+ 12/22/2024 12/23/2023, 12/22/2023, 12/20/2022, Additional history exists Medicare Wellness for age 65+ 12/22/2024 12/22/2023, 12/19/2022, 04/07/2020, Additional history exists Colonoscopy through age 75 06/04/2025 06/05/2015, Lipids for age 45-75 12/21/2028 12/22/2023, 12/19/2022, 11/09/2021, Additional history exists Tdap Completed 12/13/2013 DEXA/DXA scan for age 65+ Completed 2020, 05/04/2018, 01/03/2016 Hepatitis C screening for age 18-79 Completed 12/22/2023 Influenza Vaccine Completed 12/22/2023, , 12/27/2021, Additional history exists Hepatitis B series for 19+ Aged Out N o longer eligible based on patient's age to complete this topic Procedures Procedure Name Priority Date/Time Associated Diagnosis Comments ANTI HCV Routine 12/22/2023 12:47 PM CDT Routine health maintenance LIPID PANEL Routine 12/22/2023 12:47 PM CDT Other hyperlipidemia XR MAMMO MARLON BILAT SCREEN Routine 10/02/2023 1:10 PM CDT Screening breast examination XR DXA BONE DENSITY 2 SITES AXIAL Routine 05/08/2020 1:22 PM FRAME OPENER Osteoporosis, unspecified osteoporosis type, unspecified pathological fracture presence SCAN-COLONOSCOPY 06/05/2015 9:30 AM CDT from Last 3 Months or Most Recently Relevant to Health Maintenance Results * ANTI HCV (12/22/2023 12:47 PM CDT) HEPATITIS C ANTIBODY NON-REACTI VE NON-REACT ERIK [facility] Comment: HCV antibody was non-reactive. There is no laboratory evidence of HCV infection. In most cases, no further action is required. However, if recent HCV exposure is suspected, a test for HCV RNA (test code 13420) is suggested. For additional information please refer to http://education.Ciespace/faq/RPV28n7 (This link is being provided for informational/ educational purposes only.) Blood BLOOD SPECIMEN / Unknown 12/22/2023 12:47 PM CDT 12/22/2023 12:48 PM CDT Narrative [facility] - 12/23/2023 2:16 PM CDT FASTING:NO FASTING: NO Sebas Galloway MD SEND OUTS Final Result [facility] [address] [place] [address], [facility] [address] [place] [address] * (ABNORMAL) LIPID PANEL (12/22/2023 12:47 PM CDT) CHOLESTEROL, TOTAL 212(H) <200 mg/dL [facility] HDL CHOLESTEROL 72 > OR = 50 mg/dL [facility] TRIGLYCERIDES 126 <150 mg/dL [facility] LDL-CHOLESTEROL 116(H) mg/dL (calc) [facility] Comment: Reference range: <100 Desirable range <100 mg/dL for primary prevention; <70 mg/dL for patients with CHD or diabetic patients with > or = 2 CHD risk factors. LDL-C is now calculated using the -Ananth calculation, which is a validated novel method providing better accuracy than the Friedewald equation in the estimation of LDL-C. Martin ZAMUDIO et al. JOSÉ LUIS. 2013;310(19): 9939-5230 (http://education.Ibelem.3point5.com/faq/PKE165) CHOL/HDLC RATIO 2.9 <5.0 (calc) [facility] NON HDL CHOLESTEROL 140(H) <130 mg/dL (calc) [facility] Comment: For patients with diabetes plus 1 major ASCVD risk factor, treating to a non-HDL-C goal of <100 mg/dL (LDL-C of <70 mg/dL) is considered a therapeutic option. Blood BLOOD SPECIMEN / Unknown 12/22/2023 12:47 PM CDT 12/22/2023 12:48 PM CDT Narrative [facility] - 12/23/2023 4:46 AM CDT FASTING:NO FASTING: NO Sebas Galloway MD CHEMISTRY Final Result [facility] [address] [place] [address], [facility] [address] [place] [address] * XR MAMMO MARLON BILAT SCREEN (10/02/2023 1:10 PM CDT) Anatomical Region Laterality Modality BREASTS, Breast Left, Breast Right Bilateral Mammography 10/02/2023 1:10 PM CDT Impressions 10/03/2023 8:25 AM CDT IMPRESSION: No concerning mammographic findings. Recommend routine annual screening mammography. When performed, computer-aided detection was used in the interpretation of this study. ACR BI-RADS Category 1: Negative. A lay language report of this examination will be mailed to the patient. LIFETIME BREAST CANCER RISK ASSESSMENT SCORE: Lifetime risk of developing breast cancer is 6.9% calculated using the Nayeli Model and information provided by the patient at the time of screening. The average lifetime risk for developing breast cancer is 12.9% for women born in the . For patients with a lifetime breast cancer risk assessment score of less than 20%, annual screening mammography is recommended. For patients with a lifetime risk of greater than 20%, annual screening mammography supplemented with annual Breast MRI is recommended. Patients in this category are encouraged to discuss this recommendation with their healthcare provider to determine if Breast MRI is appropriate and if so, to obtain a referral and confirm coverage with their health insurance. Recommendations are based on the [employer] Appropriateness Criteria. Patients with a BI-RADS category of 0 should follow the recommendations for further evaluation before considering supplemental screening. Narrative 10/03/2023 8:25 AM CDT EXAM: MAMMOGRAM SCREENING MARLON BILATERAL LOCATION: [facility] DATE: 10/02/2023 INDICATION: Asymptomatic. Screening Mammogram. COMPARISON: 09/10/22, 05/09/21 and 05/02/2017. BREAST DENSITY: The breasts are heterogeneously dense, which may obscure small masses. FINDINGS: Tomosynthesis craniocaudal and mediolateral oblique views were obtained. There is no evidence for spiculated masses, architectural distortion, asymmetry or suspicious calcifications. Procedure Note Chase Frey MD - 10/03/2023 EXAM: MAMMOGRAM SCREENING MARLON BILATERAL LOCATION: [facility] DATE: 10/02/2023 INDICATION: Asymptomatic. Screening Mammogram. COMPARISON: 09/10/22, 05/09/21 and 05/02/2017. BREAST DENSITY: The breasts are heterogeneously dense, which may obscure small masses. FINDINGS: Tomosynthesis craniocaudal and mediolateral oblique views were obtained. There is no evidence for spiculated masses, architectural distortion, asymmetry or suspicious calcifications. IMPRESSION: IMPRESSION: No concerning mammographic findings. Recommend routine annual screening mammography. When performed, computer-aided detection was used in the interpretation of this study. ACR BI-RADS Category 1: Negative. A lay language report of this examination will be mailed to the patient. LIFETIME BREAST CANCER RISK ASSESSMENT SCORE: Lifetime risk of developing breast cancer is 6.9% calculated using the Nayeli Model and information provided by the patient at the time of screening. The average lifetime risk for developing breast cancer is 12.9% for women born in the [place]. For patients with a lifetime breast cancer risk assessment score of less than 20%, annual screening mammography is recommended. For patients with a lifetime risk of greater than 20%, annual screening mammography supplemented with annual Breast MRI is recommended. Patients in this category are encouraged to discuss this recommendation with their healthcare provider to determine if Breast MRI is appropriate and if so, to obtain a referral and confirm coverage with their health insurance. Recommendations are based on the [employer] Appropriateness Criteria. Patients with a BI-RADS category of 0 should follow the recommendations for further evaluation before considering supplemental screening. us Sebas Galloway MD MAMMO Final Result * XR DXA BONE DENSITY 2 SITES AXIAL (05/08/2020 1:22 PM FRAME OPENER) Anatomical Region Laterality Modality Spine, HIPS, HIPL, HIPR Other 05/08/2020 1:22 PM FRAME OPENER Impressions 05/08/2020 2:53 PM FRAME OPENER IMPRESSION: 1. Normal bone density of the lumbar spine. 2. Mild osteopenia of the right and left femoral necks. RECOMMENDATIONS: Typical recommendations include total daily calcium intake (diet and supplement) of 1500 mg, daily vitamin D intake of 400-800 IU, and regular weight-bearing exercise, and consideration of medication (hormone replacement therapy, bisphosphonate, or calcitonin), if appropriate clinically. A follow-up DEXA scan in 1-2 years is recommended, as medically indicated. Narrative 05/08/2020 2:53 PM FRAME OPENER EXAM: BONE MINERAL DENSITY (DEXA) EXAM LOCATION: [facility] DATE/TIME: 05/08/2020 1:22 PM INDICATION: 64-year-old postmenopausal female with age-related osteoporosis without current pathological fracture. Patient is a smoker. Taking alendronate, Calcium and Vitamin D. Implanted device at L4. COMPARISON: Most recent examination 05/04/2018. Baseline 08/05/2001. TECHNIQUE: The study was performed using DEXA in the AP lumbar spine and AP femur using a Leo Discovery C. FINDINGS: Using DEXA, the results were reported according to T score. The T score is the standard deviation from the peak bone mass in a normal young patient. A T score of 0 to -1.0 is normal. A T score of -1.0 to -2.5 correlates with osteopenia. A T score of less than -2.5 correlates with osteoporosis. The total T-score from L1-L3 is 1.3 compared with 0.4 in the previous study and 0.4 in the baseline study. Due to implanted spine device visible on L4, L4 was excluded from the study. Therefore comparison values from the previous studies only include L1-L3 as well. There has been a 9.1% change in bone density since the previous study. This is a statistically significant change in bone density. The T-score for the right femoral neck is -1.0. The bone mineral density of the right femoral neck is 0.734 g/cm2. The T-score for the left femoral neck is -1.2 compared with -1.7 in the previous study and 0.7 in the baseline study. The bone mineral density of the left femoral neck is 0.716 g/cm2. Procedure Note Unknown, Doctor - 05/08/2020 EXAM: BONE MINERAL DENSITY (DEXA) EXAM LOCATION: [facility] DATE/TIME: 05/08/2020 1:22 PM INDICATION: 64-year-old postmenopausal female with age-related osteoporosis without current pathological fracture. Patient is a smoker. Taking alendronate, Calcium and Vitamin D. Implanted device at L4. COMPARISON: Most recent examination 05/04/2018. Baseline 08/05/2001. TECHNIQUE: The study was performed using DEXA in the AP lumbar spine and AP femur using a Leo Discovery C. FINDINGS: Using DEXA, the results were reported according to T score. The T score is the standard deviation from the peak bone mass in a normal young patient. A T score of 0 to -1.0 is normal. A T score of -1.0 to -2.5 correlates with osteopenia. A T score of less than -2.5 correlates with osteoporosis. The total T-score from L1-L3 is 1.3 compared with 0.4 in the previous study and 0.4 in the baseline study. Due to implanted spine device visible on L4, L4 was excluded from the study. Therefore comparison values from the previous studies only include L1-L3 as well. There has been a 9.1% change in bone density since the previous study. This is a statistically significant change in bone density. The T-score for the right femoral neck is -1.0. The bone mineral density of the right femoral neck is 0.734 g/cm2. The T-score for the left femoral neck is -1.2 compared with -1.7 in the previous study and 0.7 in the baseline study. The bone mineral density of the left femoral neck is 0.716 g/cm2. IMPRESSION: IMPRESSION: 1. Normal bone density of the lumbar spine. 2. Mild osteopenia of the right and left femoral necks. RECOMMENDATIONS: Typical recommendations include total daily calcium intake (diet and supplement) of 1500 mg, daily vitamin D intake of 400-800 IU, and regular weight-bearing exercise, and consideration of medication (hormone replacement therapy, bisphosphonate, or calcitonin), if appropriate clinically. A follow-up DEXA scan in 1-2 years is recommended, as medically indicated. us Sebas Galloway MD DEXA Final Result * SCAN-COLONOSCOPY (06/05/2015 9:30 AM CDT) Narrative Transcriptions Juventino Peace MD - 06/05/2015 8:21 AM CDT [facility] [address] [place] [address], [address], [place] [address] Patient Name: Ban Monsalve Gender: Female Exam Date: 06/05/2015 Visit Number: [id number] Age: 59 Years Date of : 1955 Attending MD: Juventino Peace MD Medical Record#: [id number] ----- Procedure: Colonoscopy Indications: Colorectal cancer screening Referring MD: Sebas Galloway MD Primary MD: Sebas Galloway MD Medications: Intra Procedure Medications: Received MAC sedation per anesthesia provider Complications: Procedure: An examination of the heart and lungs was performed and found to be withinacceptable limits. The patient was therefore deemed a reasonablecandidate for endoscopy and 1 sedation. The risks and benefits of the procedure were explained to the patient.After obtaining informed consent, MAC sedation was administered peranesthesia provider and I passed the scope without difficulty via the rectum to the cecum. The appendiceal orificeand ic valve were identified. The scope was retroflexed during theexamination The quality of the prep was excellent (Miralax/Gatorade/2tablets Bisacodyl/Magnesium Citrate). This was a complete examination throughout the entire colon. Findings: Polyp location: descending colon. Quantity: 1. Size: 9 mm. Polyp shape:flat lesion. Maneuver: polypectomy was performed with a hot snare. Removal: complete. Retrieval: complete. Bleeding: none. Diverticulosis. Location: - descending colon - sigmoid. Description:mild. Size: medium. Quantity: few. No inflammation present. Hemorrhoids. Internal and external hemorrhoids without bleeding. Impression: Colon polyp Diverticulosis of large intestine without hemorrhage Hemorrhoids, unspecified hemorrhoid type Pathology Results: A: COLON, DESCENDING, POLYP: Hyperplastic polyp MICROSCOPIC A: Performed Electronically signed by: Toya Avery MD Final Plan: Repeat colonoscopy in 10 years for screening. If you have signs orsymptoms of lower GI illness or a new diagnosis of colon cancer in animmediate family member, you should contact [facility] or your primary providerto discuss whether your next exam should be repeated sooner. We will attempt to contact you at appropriate intervals via U.S. mail. Wemay not be able to find you or contact you at that time, therefore youshould know that the responsibility for following our recommendation restswith you. If you don't hear from us at the time your procedure is due,please contact our office to schedule an appointment. If your contactinformation should change, please contact our office so that we can updateyour record. _Electronically signed by: Juventino Peace MD 06/05/2015 us Juventino Peace MD OTHER Final Resu lt from Last 3 Months or Most Recently Relevant to Health Maintenance Insurance [employer] ADVANTAGE MR Care Teams Auto Body Man Relationship Specialty [place] [address] [place] [address] PCP - General 07/27/09
[2024-08-28 13:14] VITALS: BP 188/99; PULSE 100; RESP 20; TEMP 36.9; O2SAT 98
--- NOTE | 2024-08-28 13:25 | ED.GENADULT ---
HPI - General Adult General Chief complaint: Neuro Symptoms/Altered Deficit Stated complaint: memory loss, confusion Time Seen by Provider: 08/28/24 13:20 History of Present Illness HPI narrative: Patient is a 68-year-old woman who is in the last 2 weeks has had impaired cognition. She has no problems at baseline according to her but she is becoming more and more forgetful since her had orthopedic surgery. Patient is now hardly able to function on her own and needs assistance with everyday activities. She has had no fevers no chills no diaphoresis no nausea no vomiting. She is eating and drinking normally. She has no pain. No stiff neck no hallucinations. Patient states that she has simply just lost her ability to focus. No previous history of similar. Over the same time. Patient has stopped her pregabalin that she took for peripheral neuropathy. Her review of past medical history does show a chronic hypertension hypothyroidism as well as rheumatoid arthritis. Related Data Home Medications ?Medication ?Instructions ?Recorded ?Confirmed aspirin 325 mg tablet 325 mg PO DAILY 06/29/22 08/28/24 atorvastatin 40 mg tablet 40 mg PO DAILY 06/29/22 08/28/24 folic acid 1 mg tablet 1 mg PO DAILY 06/29/22 08/28/24 hydroxychloroquine 200 mg tablet 200 mg PO DAILY 06/29/22 08/28/24 ibuprofen 200 mg capsule 400 mg PO DAILY PRN 06/29/22 06/29/22 levothyroxine 100 mcg tablet 100 mcg PO DAILY 06/29/22 08/28/24 lisinopril 20 mg tablet 20 mg PO DAILY 06/29/22 08/28/24 methotrexate sodium 2.5 mg tablet 20 mg PO TU@09 06/29/22 08/28/24 metoprolol succinate 25 mg 12.5 mg PO DAILY 06/29/22 08/28/24 tablet,extended release 24 hr pregabalin 75 mg capsule 75 mg PO BID 06/29/22 08/28/24 calcium carbonate (Calcium 600) 1,200 mg PO DAILY 06/30/22 08/28/24 cholecalciferol (vitamin D3) .Route 06/30/22 Previous Rx's ?Medication ?Instructions ?Recorded pantoprazole 20 mg tablet,delayed 20 mg PO DAILY #20 tabs 06/28/22 release (Protonix) Allergies Allergy/AdvReac Type Severity Reaction Status Date / Time Penicillins Allergy Verified 08/28/24 13:11 Review of Systems Status of ROS: Reports: 10 or more systems reviewed and unremarkable except as noted in History and below PFSH [facility] Medical History Chronic low back pain ?M54.50 - Low back pain, unspecified (ICD-10) ?G89.29 - Other chronic pain (ICD-10) Hyperlipidemia ?E78.5 - Hyperlipidemia, unspecified (ICD-10) Hypothyroidism ?E03.9 - Hypothyroidism, unspecified (ICD-10) Rheumatoid arthritis ?M06.9 - Rheumatoid arthritis, unspecified (ICD-10) Hypertension ?I10 - Essential (primary) hypertension (ICD-10) Coronary artery disease ?I25.10 - Atherosclerotic heart disease of [place] coronary artery without angina pectoris (ICD-10) Hyponatremia ?E87.1 - Hypo-osmolality and hyponatremia (ICD-10) Surgical History History of coronary artery bypass graft ?Z95.1 - Presence of aortocoronary bypass graft (ICD-10) Family History Mother Coronary artery disease Stroke High cholesterol High blood pressure Brother Coronary artery disease High cholesterol High blood pressure Father Alcohol dependence Social History (Updated 06/29/22 @ 23:42 by Gaetano Hodge MD) Narrative: She lives in [facility] with her . They have 1 adult daughter. Her , Royer, is healthcare power of civil rights attorney. Code status is full. She smokes 3/4 pack of cigarettes per day. She rarely drinks alcohol Highest level of school completed/degree received: some college, no degree Smoking Status: Current every day smoker What tobacco products do you use: cigarettes Smoking packs per day: 0.75 Smoking cigarettes per day: 15.0 Years smoked: 30 Smoking pack-years: 22.50 Do you use any of these nicotine containing products: None Second hand tobacco smoke exposure: No How often do you have a drink containing alcohol: monthly or less How many standard drinks containing alcohol do you have on a typical day: 1 or 2 How often do you have six or more drinks on one occasion: Never AUDIT-C Alcohol total score: 1 Non-prescribed substance use: denies use Caffeine: Yes (Coffee QD) service: No Exam Narrative: Exam Narrative: EXAM GENERAL: Patient appears comfortable and well. EYES: No scleral icterus. ENT: Tympanic membranes and oropharynx normal. THYROID: no thyroid nodules or thyromegaly. LYMPH: No supraclavicular or cervical lymphadenopathy. SKIN: Visible skin seen during exam normal or with benign process only. EXT: No dependent lower extremity pedal edema. HEART: Regular rate and rhythm with no murmurs, rubs, or gallops. LUNGS: Clear to auscultation bilaterally with no crackles or wheezes. ABD: Soft, non tender, non distended. PSYCH: Good eye contact, speech is not pressured. Patient appears oriented but very slow cognitive Neurologic cranial nerves 2-12 grossly intact no focal defects Const: Vital Signs, click to edit/add: Vital Signs - 24 hr 08/28/24 13:14 Temperature 98.4 F Pulse Rate [Pulse Oximeter] 100 Respiratory Rate 20 Blood Pressure [Ri ght Upper Arm] 188/99 H Pulse Oximetry 98 Oxygen Delivery Me thod Room Air Course Vital Signs Vital signs: Initial Vital Signs Temperature 98.4 F 08/28/24 13:14 Temperature Source Temporal Artery Scan 08/28/24 13:14 Pulse Rate 100 08/28/24 13:14 Respiratory Rate 20 08/28/24 13:14 Blood Pressure 188/99 H 08/28/24 13:14 Blood Pressure Mean 128 H 08/28/24 13:14 Pulse Oximetry 98 08/28/24 13:14 Oxygen Delivery Method Room Air 08/28/24 13:14 Vital Signs Temperature 98.4 F 08/28/24 13:14 Pulse Rate 100 08/28/24 13:14 Respiratory Rate 20 08/28/24 13:14 Blood Pressure 188/99 H 08/28/24 13:14 Pulse Oximetry 98 08/28/24 13:14 Oxygen Delivery Method Room Air 08/28/24 13:14 Temperature 98.4 F 08/28/24 13:14 Pulse Rate 100 08/28/24 13:14 Respiratory Rate 20 08/28/24 13:14 Blood Pressure 188/99 H 08/28/24 13:14 Pulse Oximetry 98 08/28/24 13:14 Oxygen Delivery Method Room Air 08/28/24 13:14 Medical Decision Making MDM Narrative Medical decision making narrative: Patient presents with impaired cognition over the last several weeks. Patient is going to very difficult time as her recently had hip surgery. I did do a CT of her head and chest x-ray and labs. These are largely unremarkable. She was not able to provide a urine until the very end of her visit and now is very anxious to leave and does not want to wait for the results. At this point I think her delirium is due to depression over her 's health. I do think that between the 2 of them they are safe at home. I did offer reassurance and she does admit that she is depressed. We will have the follow-up closely with her doctor this coming week and make no changes in her treatment. Lab Data Labs: Lab Results 08/28/24 Range/Units 14:01 WBC 9.73 (4.50-11.00) K/uL RBC 4.37 (4.00-5.20) m/uL Hgb 14.4 (12.0-16.0) gm/dL Hct 42.7 (33.0-51.0) % MCV 98 (80-100) fL MCH 33 (26-34) pg MCHC 34 (32-36) gm/dL RDW Coeff of Daniel 14.7 (11.5-15.5) % Plt Count 210 (140-440) K/uL Neut % (Auto) 85.2 H (42.0-72.0) % Lymph % (Auto) 9.1 L (20-44) % Beckham % (Auto) 5.1 (0.0-11.0) % Eos % (Auto) 0.0 (0.0-7.0) % Baso % (Auto) 0.3 (0.0-3.0) % Neut # (Auto) 8.30 H (1.7-7.0) K/uL Lymph # (Auto) 0.90 (0.90-2.90) K/uL Beckham # (Auto) 0.50 (0.00-0.90) K/UL Eos # (Auto) 0.00 (0.00-0.50) K/uL Baso # (Auto) 0.03 (0.00-0.30) K/uL Abs Immat Gran (auto) 0.03 (0.00-0.30) K/uL Imm/Tot Granulo (auto) 0.3 % Sodium 132 L (135-149) mmol/L Potassium 3.9 (3.6-5.1) mmol/L Chloride 99 (96-114) mmol/L Carbon Dioxide 20 (20-32) mmol/L Anion Gap 13 (7-15) mEq/L BUN 10 (7-30) mg/dL Creatinine 0.9 (0.5-1.5) mg/dL Estimated Creat Clear 45.85 Estimated GFR 69 ml/min Glucose 131 H (60-115) mg/dL Calcium 9.8 (8.4-10.6) mg/dL Total Bilirubin 0.7 (0.1-1.5) mg/dL AST 46 H (12-35) U/L ALT 28 (4-35) U/L Alkaline Phosphatase 74 (40-150) U/L Total Protein 7.7 (6.0-8.3) g/dL Albumin 4.8 (3.3-5.0) g/dL Discharge Plan Discharge Clinical Impression: Depression Patient Disposition: Home, Self-Care Condition: Stable Instructions: Depression (ED) Additional Instructions: Continue current medications. Follow-up with your doctor this coming week to discuss next steps. Activity Level: No Restrictions Discharge Diet: Regular Prescriptions: No Action pantoprazole [Protonix] 20 mg tablet,delayed release (DR/EC) 20 mg PO DAILY Qty: 20 2RF atorvastatin 40 mg tablet 40 mg PO DAILY lisinopril 20 mg tablet 20 mg PO DAILY levothyroxine 100 mcg tablet 100 mcg PO DAILY methotrexate sodium 2.5 mg tablet 20 mg PO Rx Instructions: 8 tablets weekly on Friday folic acid 1 mg tablet 1 mg PO DAILY hydroxychloroquine 200 mg tablet 200 mg PO DAILY metoprolol succinate 25 mg tablet extended release 24 hr 12.5 mg PO DAILY pregabalin 75 mg capsule 75 mg PO BID aspirin 325 mg tablet 325 mg PO DAILY ibuprofen 200 mg capsule 400 mg PO DAILY PRN calcium carbonate [Calcium 600] 600 mg calcium (1,500 mg) tablet 1,200 mg PO DAILY cholecalciferol (vitamin D3) .Route Rx Instructions: DAILY D3, UNKNOWN DOSE Follow Up/Referrals: Provider,Not a Local [Primary Care Provider, Family Practice] Stand Alone Forms: [employer] Info Instructions
--- NOTE | 2024-08-28 13:26 | CRLHL7_ITS ---
For Patients: As a result of the Cures Act, medical imaging exams and procedure reports are released immediately into your electronic medical record. You may view this report before your referring provider. If you have questions, please contact your health care provider. INDICATION: Weakness TECHNIQUE: Chest radiograph 2 views COMPARISON: None FINDINGS: The sensitivity and specificity of the exam are moderately limited by the patient`s body habitus. Mediastinum: Previous median sternotomy and coronary artery bypass grafting (CABG) noted. The heart silhouette is normal in size and morphology. Lung: Both lungs are unremarkable in appearance. No sign of pleural effusion seen. No pneumothorax is identified. Bone and Soft tissue: Moderate kyphosis with severe degenerative disc disease is seen in the mid and inferior thoracic spine. IMPRESSION: 1. No acute cardiopulmonary disease is seen. Dictated by Odilon De Souza MD @ 08/28/2024 2:18:55 PM Dictated by: Odilon De Souza MD @ 08/28/2024 14:19:00 (Electronically Signed)
--- NOTE | 2024-08-28 13:26 | CRLHL7_ITS ---
For Patients: As a result of the Century Cures Act, medical imaging exams and procedure reports are released immediately into your electronic medical record. You may view this report before your referring provider. If you have questions, please contact your health care provider. INDICATION: .WEAKNESS. CONFUSION TECHNIQUE: Head CT without contrast. COMPARISON: None. FINDINGS: Motion and decreased signal to noise ratio degrades fine detailed evaluation during the exam. Periventricular areas of low attenuation, likely due to chronic small vessel ischemic changes. Generalized volume loss. Atherosclerosis. No intracranial hemorrhage. No discrete mass or mass effect. There is no midline shift. The basilar cisterns are patent. No hydrocephalus. The dodd-white matter interface is otherwise preserved. No acute osseous abnormality. No extracalvarial soft tissue abnormality. The mastoid air cells are clear. The paranasal sinuses are well-aerated. The visualized portions of the orbits and globes are unremarkable. IMPRESSION: No acute intracranial process per unenhanced head CT given the constraints. Please note that all CT scans at this facility use dose modulation, iterative reconstruction, and/or weight-based dosing when appropriate to reduce radiation dose to as low as reasonably achievable. Dictated by Scott Borges MD @ 08/28/2024 2:32:21 PM (Electronically Signed)
[2024-08-28 14:14] LABS: Basophils Absolute Auto 0.03 K/uL (0.00-0.30); Basophils Percent Auto 0.3 % (0.0-3.0); Hematocrit 42.7 % (33.0-51.0); Hemoglobin* 14.4 gm/dL (12.0-16.0); Immature Granulocytes Abs Auto 0.03 K/uL (0.00-0.30); Immature Granulocytes Pct Auto 0.3 %; Lymphocytes Percent Auto 9.1 % (20-44); Mean Corpuscular HGB Conc 34 gm/dL (32-36); Mean Corpuscular Hemoglobin 33 pg (26-34); Mean Corpuscular Volume 98 fL (80-100); Monocytes Percent Auto 5.1 % (0.0-11.0); Neutrophils Percent Auto 85.2 % (42.0-72.0); Platelet Count* 210 K/uL (140-440); RDW Coefficient of Variation % 14.7 % (11.5-15.5); Red Blood Count 4.37 m/uL (4.00-5.20); White Blood Count* 9.73 K/uL (4.50-11.00)
[2024-08-28 14:28] LABS: Slide Review Reflex No
[2024-08-28 14:29] LABS: Chloride* 99 mmol/L (96-114)
[2024-08-28 14:30] LABS: Albumin* 4.8 g/dL (3.3-5.0); Potassium* 3.9 mmol/L (3.6-5.1); Sodium* 132 mmol/L (135-149)
[2024-08-28 14:32] LABS: Blood Urea Nitrogen* 10 mg/dL (7-30); Creatinine* 0.9 mg/dL (0.5-1.5); Est. Creatinine Clearance* 45.85; Estimated Glomerular Filt Rate 69 ml/min
[2024-08-28 14:33] LABS: Alanine Aminotransferase* 28 U/L (4-35); Alkaline Phosphatase* 74 U/L (40-150); Anion Gap 13 mEq/L (7-15); Aspartate Amino Transferase* 46 U/L (12-35); Bilirubin Total* 0.7 mg/dL (0.1-1.5); Calcium* 9.8 mg/dL (8.4-10.6); Carbon Dioxide* 20 mmol/L (20-32); Glucose* 131 mg/dL (60-115); Total Protein* 7.7 g/dL (6.0-8.3)
[2024-08-28 15:06] LABS: Appearance Urine Clear (Clear); Bilirubin Urine 1+ (Negative); Blood Urine Trace-intact (Negative); Color Urine Dark yellow (Yellow); Glucose Urine Negative (Negative); Ketones Urine 2+ (Negative); Leukocyte Esterase Urine Negative (Negative); Nitrite Urine Negative (Negative); Protein Urine 2+ (Negative); Specific Gravity Urine >= 1.030 (1.000-1.030); Urobilinogen Urine 0.2 (0.2-1.0)
[2024-08-28 15:13] VITALS: BP 172/82; PULSE 103; RESP 18; TEMP 36.2; O2SAT 97
[2024-08-28 15:24] LABS: Bacteria Urine Few; Mucus Urine Few; Squamous Epithelial Cell Urine Few (None-Few)
== END 2024-08-28 15:34 | disposition home or self-care (01) ==
PROVIDERS: Emergency Provider Internal Medicine
DX: F32.A Depression, unspecified (principal)
CPT/HCPCS: 36415; 70450; 71046; 80053; 81001; 81003; 84439; 84443; 85025; 87086; 93005; 99283; 99284; 99285